=== PATIENT | male | born 1945 | race Caucasian/White ===

== ENCOUNTER 2016-06-24 20:07 | Observation (INO) | payer BC, MEDICARE, OTHER ==
[~2016-06-24] VITALS: Ht 175.3 cm; Wt 64.9 kg
[~2016-06-24 20:07] MED LIST: AMLOPIDINE; ATIVAN 0.50.5 MG/TAB PO; BUPROPRION; CARAFATE 1GM1 G PO; CELEXA; CELEXA40 MG PO; CENTRUM SILVER1 TAB PO; EFFEXOR-XR150 MG PO; EPA1000 MG PO; LAMICTAL150 MG PO; LISINOPRIL/HCTZ1 TA2 PO; MECLIZINE25 M1 PO; NORVASC 10MG10 MG PO; NORVASC10 MG PO; PERCOCET 325 MG1 TA2 PO; PRAVACHOL 40MG40 MG PO; PRILOSEC 20MG20 MG PO; SEROQUEL 1100 MG/TAB PO; SEROQUEL 2525 MG/TAB PO; SERTRALINE; UNICOMPLEX1 CAP PO; VITAMIN B-1000 MCG/T PO; ZOCOR40 MG PO; ZOFRAN4 M1 PO; ZOLOFT 50MG50 MG PO; [UNRECOGNIZED DRUG - MIXTURE] PO; [UNRECOGNIZED DRUG - OTHER]
[2016-06-24 20:36] LABS: BASO % 0.4 % (0.0-2.0); EOS # 0.3 (0.0-0.7); EOS % 2.8 % (0-4.0); GRAN # 5.7 (1.4-6.5); GRAN % 56.1 % (42.2-75.2); LYMPH % 29.5 % (20.0-51.0); MEAN CELL VOLUME 94 fl (80.0-100.0); MEAN CORPUSCULAR HGB CONC 33 g/dl (33.0-37.0); MEAN PLATELET VOLUME 11.2 fl (7.4-10.4); MONO # 1.1 (0.1-0.6); PLATELET COUNT 270 K/mm3 (130-400); RED BLOOD COUNT 3.56 M/mm3 (4.20-5.60); REDCELL DISTRIBUTION WIDTH-CV 13.1 % (11.5-14.5); WHITE BLOOD COUNT 10.2 K/mm3 (4.8-10.8)
[2016-06-24 20:37] LABS: HEMATOCRIT 33.5 % (42.0-52.0); HEMOGLOBIN 11.1 g/dl (13.5-18.0); MEAN CORPUSCULAR HEMOGLOBIN 31 pg (27.0-31.0)
[2016-06-24] MEDS ORDERED: ATARAX 25MG25 MG/TAB PO (20:43)
[2016-06-24] MEDS ORDERED: ASPIRIN 81M81 MG/TA2 PO (20:44)
[2016-06-24] MEDS ORDERED: FLOMAX 0.40.4 MG/CAP PO (20:44)
[2016-06-24] MEDS ORDERED: NEURONTIN300 MG/CAP PO (20:44)
[2016-06-24] MEDS ORDERED: ZANAFLEX2 MG PO (20:45)
[2016-06-24] MEDS ORDERED: NORCO 325 MG-51 TAB PO (20:45)
[2016-06-24 20:47] LABS: ADJUSTED CALCIUM 9.3 mg/dL (8.4-10.2); ALANINE AMINOTRANSFERASE 42 U/L (21-72); ALBUMIN 4.3 gm/dL (3.5-5.0); ALKALINE PHOSPHATASE 78 U/L (50-136); ANION GAP 9 mmol/L (7-16); BILIRUBIN,TOTAL 0.8 mg/dL (0.0-1.0); BLOOD UREA NITROGEN 17 mg/dL (9-20); CALCIUM 9.5 mg/dL (8.4-10.2); CARBON DIOXIDE 33 mmol/L (22-30); CHLORIDE 95 mmol/L (98-107); CREATININE, serum 0.74 mg/dL (0.66-1.25); GLUCOSE 98 mg/dL (74-106); POTASSIUM 4.9 mmol/L (3.4-5.0); SODIUM 138 mmol/L (137-145); TOTAL PROTEIN 7.5 gm/dL (6.4-8.2)
[2016-06-24 20:48] LABS: PROTHROMBIN TIME 11.1 SECONDS (9.7-12.8)
[2016-06-24 20:58] LABS: B-TYPE NATRIURETIC PEPTIDE 991 pg/mL (0-125)
[2016-06-24 21:00] LABS: TROPONIN-I < 0.012 ng/mL (0.000-0.034)
[2016-06-25] VITALS (10 sets, daily range): BP systolic 100–165; BP diastolic 46–82; PULSE 70–115; TEMP 97.9–98.3
[2016-06-26 00:18] VITALS: BP 132/75; PULSE 83
[2016-06-26 04:58] VITALS: BP 124/71; PULSE 87; TEMP 97.9
[2016-06-26 10:11] VITALS: BP 139/75; PULSE 100; TEMP 97.5
[2016-06-26] MEDS ORDERED: PREDNISONE20 MG PO (12:01)
[2016-06-26] MEDS ORDERED: 00186-0370-20 IH (12:02)
[2016-06-26] MEDS ORDERED: INCRUSE EL62.5 MCG/A IH (12:02)
[2016-06-26] MEDS ORDERED: ZITHROMAX TRI-500 MG PO (12:03)
[2016-10-10] MEDS ORDERED: PREDNISONE20 MG PO (11:05)
[2016-10-14] MEDS ORDERED: PRINZIDE 12.5 M1 TA1 PO (06:25)
[2016-10-14] MEDS ORDERED: SPIRIVA RE2.5 MCG/Ac IH (06:26)
[2016-10-14] MEDS ORDERED: 00186-0370-20 IH (06:26)
[2016-10-14] MEDS ORDERED: VITAMIN D1000 IU PO (06:28)
== END 2016-06-26 14:30 | disposition home or self-care (01) ==
LOC: COL.ER 20:07 → JCC 22:17
PROVIDERS: Emergency Medicine
DX: J44.1 Chronic obstructive pulmonary disease with (acute) exacerbation (principal); F17.210 Nicotine dependence, cigarettes, uncomplicated; J96.01 Acute respiratory failure with hypoxia; I10 Essential (primary) hypertension; D64.9 Anemia, unspecified; Z96.612 Presence of left artificial shoulder joint
CPT/HCPCS: 99222-AI; G0378; J0696; J2060; J2270; J7030; J7512; Q9967

== ENCOUNTER 2016-10-01 11:24 | Inpatient (IN) | payer OTHER ==
[2016-10-01] VITALS (556 sets, daily range): BP systolic 79–122; BP diastolic 50–64; PULSE 82–100; TEMP 98.1–98.7; O2SAT 77–100
[~2016-10-01] VITALS: Ht 175.3 cm; Wt 64.7 kg
[~2016-10-01 11:24] MED LIST changes: +00186-0370-20 IH; +ASPIRIN 81M81 MG/TA2 PO; +ATARAX 25MG25 MG/TAB PO; +FLOMAX 0.40.4 MG/CAP PO; +INCRUSE EL62.5 MCG/A IH; +NEURONTIN300 MG/CAP PO; +NORCO 325 MG-51 TAB PO; +PREDNISONE20 MG PO; +ZANAFLEX2 MG PO; +ZITHROMAX TRI-500 MG PO
[2016-10-01 11:53] LABS: MEAN CELL VOLUME 92 fl (80.0-100.0); MEAN CORPUSCULAR HGB CONC 35 g/dl (33.0-37.0); MEAN PLATELET VOLUME 10.7 fl (7.4-10.4); PLATELET COUNT 377 K/mm3 (130-400); RED BLOOD COUNT 3.42 M/mm3 (4.20-5.60); REDCELL DISTRIBUTION WIDTH-CV 12.6 % (11.5-14.5); WHITE BLOOD COUNT 13.4 K/mm3 (4.8-10.8)
[2016-10-01 11:59] LABS: ADJUSTED CALCIUM 9.1 mg/dL (8.4-10.2); ALBUMIN 4.3 gm/dL (3.5-5.0); BILIRUBIN,TOTAL 0.9 mg/dL (0.0-1.0); CALCIUM 9.3 mg/dL (8.4-10.2); CREATININE, serum 1.98 mg/dL (0.66-1.25); POTASSIUM 4.8 mmol/L (3.4-5.0); TOTAL PROTEIN 7.8 gm/dL (6.4-8.2)
[2016-10-01 12:17] LABS: ADD PATHOLOGY DIFF REVIEW NO; HEMATOCRIT 31.6 % (42.0-52.0); HEMOGLOBIN 10.9 g/dl (13.5-18.0); MEAN CORPUSCULAR HEMOGLOBIN 32 pg (27.0-31.0)
[2016-10-01 12:21] LABS: BAND 45 % (0-10); EOSINOPHIL 1 % (0-4); NEUTROPHILS 26 % (42.0-75.2); PLATELET ESTIMATE INCREASED (NORMAL); TOTAL CELLS COUNTED 100
[2016-10-01] MEDS ORDERED: EZFE 200200 MG PO (13:35)
[2016-10-01] MEDS ORDERED: PROVENTIL0.09 MG/A1 IH (13:36)
[2016-10-01] MEDS ORDERED: 00186-0370-20 IH (13:38)
[2016-10-01] MEDS ORDERED: PRINZIDE 25 MG-1 TAB PO (14:50)
[2016-10-01] MEDS ORDERED: EPA FISH OIL1 SGL PO (14:54)
[2016-10-02] VITALS (763 sets, daily range): BP systolic 92–133; BP diastolic 50–82; PULSE 72–101; TEMP 97.4–98.7; O2SAT 81–100
[2016-10-02 05:48] LABS: MEAN CELL VOLUME 93 fl (80.0-100.0); MEAN CORPUSCULAR HGB CONC 34 g/dl (33.0-37.0); MEAN PLATELET VOLUME 10.5 fl (7.4-10.4); PLATELET COUNT 344 K/mm3 (130-400); RED BLOOD COUNT 2.92 M/mm3 (4.20-5.60); REDCELL DISTRIBUTION WIDTH-CV 12.6 % (11.5-14.5); WHITE BLOOD COUNT 14.8 K/mm3 (4.8-10.8)
[2016-10-02 05:52] LABS: HEMATOCRIT 27.2 % (42.0-52.0); HEMOGLOBIN 9.2 g/dl (13.5-18.0); MEAN CORPUSCULAR HEMOGLOBIN 32 pg (27.0-31.0)
[2016-10-02 05:53] LABS: ADD PATHOLOGY DIFF REVIEW NO
[2016-10-02 06:00] LABS: CALCIUM 8.3 mg/dL (8.4-10.2); CREATININE, serum 1.6 mg/dL (0.66-1.25); POTASSIUM 4.4 mmol/L (3.4-5.0)
[2016-10-02 06:08] LABS: BAND 48 % (0-10); METAMYELOCYTE 2 % (0-0); NEUTROPHILS 27 % (42.0-75.2); PLATELET ESTIMATE NORMAL (NORMAL); TOTAL CELLS COUNTED 100
[2016-10-03] VITALS (8 sets, daily range): BP systolic 95–193; BP diastolic 64–132; PULSE 76–93; TEMP 98.1–98.8
[2016-10-04 03:46] VITALS: BP 152/90; PULSE 86; TEMP 97.7
[2016-10-04 08:16] LABS: MEAN CELL VOLUME 96 fl (80.0-100.0); MEAN CORPUSCULAR HGB CONC 32 g/dl (33.0-37.0); MEAN PLATELET VOLUME 10.8 fl (7.4-10.4); RED BLOOD COUNT 3.42 M/mm3 (4.20-5.60); WHITE BLOOD COUNT 13.1 K/mm3 (4.8-10.8)
[2016-10-04 08:25] LABS: ADD PATHOLOGY DIFF REVIEW NO; HEMATOCRIT 32.9 % (42.0-52.0); HEMOGLOBIN 10.6 g/dl (13.5-18.0); MEAN CORPUSCULAR HEMOGLOBIN 31 pg (27.0-31.0); PLATELET COUNT 455 K/mm3 (130-400)
[2016-10-04 08:46] LABS: CALCIUM 9.1 mg/dL (8.4-10.2); CREATININE, serum 0.72 mg/dL (0.66-1.25); POTASSIUM 5.2 mmol/L (3.4-5.0)
[2016-10-04 09:19] VITALS: BP 135/69; PULSE 102; TEMP 97.4
[2016-10-04] MEDS ORDERED: OMNICEF 300MG300 MG PO (10:10)
[2016-10-04] MEDS ORDERED: PREDNISONE20 MG PO (10:16)
[2016-10-04 10:38] LABS: BAND 2 % (0-10); NEUTROPHILS 81 % (42.0-75.2); PLATELET ESTIMATE INCREASED (NORMAL); TOTAL CELLS COUNTED 100
[2016-10-04 13:07] VITALS: BP 145/78; PULSE 90; TEMP 98.5
[2016-10-10] MEDS ORDERED: PREDNISONE20 MG PO (11:05)
[2016-10-14] MEDS ORDERED: PRINZIDE 12.5 M1 TA1 PO (06:25)
[2016-10-14] MEDS ORDERED: 00186-0370-20 IH (06:26)
[2016-10-14] MEDS ORDERED: SPIRIVA RE2.5 MCG/Ac IH (06:26)
[2016-10-14] MEDS ORDERED: VITAMIN D1000 IU PO (06:28)
== END 2016-10-04 14:51 | disposition home or self-care (01) | DRG 191 ==
LOC: COL.ER 11:24 → MEDICAL 12:43 → ICU 14:03 → MEDICAL 14:42
PROVIDERS: Emergency Medicine; Family Medicine; Internal Medicine
DX: J44.0 Chronic obstructive pulmonary disease with (acute) lower respiratory infection (principal); N17.9 Acute kidney failure, unspecified; J44.1 Chronic obstructive pulmonary disease with (acute) exacerbation; J20.9 Acute bronchitis, unspecified; I10 Essential (primary) hypertension; E87.5 Hyperkalemia; Z87.891 Personal history of nicotine dependence; E86.0 Dehydration
CPT/HCPCS: 99223-AI; 99233-AI; 99239; J0456; J0696; J1650; J7030; J7512

== ENCOUNTER 2016-10-11 08:00 | Outpatient (RCR) | payer OTHER ==
[~2016-10-11 08:00] MED LIST changes: +EPA FISH OIL1 SGL PO; +EZFE 200200 MG PO; +OMNICEF 300MG300 MG PO; +PRINZIDE 25 MG-1 TAB PO; +PROVENTIL0.09 MG/A1 IH
[2016-10-14] MEDS ORDERED: PRINZIDE 12.5 M1 TA1 PO (06:25)
[2016-10-14] MEDS ORDERED: SPIRIVA RE2.5 MCG/Ac IH (06:26)
[2016-10-14] MEDS ORDERED: 00186-0370-20 IH (06:26)
[2016-10-14] MEDS ORDERED: VITAMIN D1000 IU PO (06:28)
== END 2016-10-12 | disposition home or self-care (01) ==
LOC: MKS.ESL.PT
DX: M75.112 Incomplete rotator cuff tear or rupture of left shoulder, not specified as traumatic (principal)
CPT/HCPCS: G8978-GP; G8979-GP

== ENCOUNTER → 2016-10-14 | Outpatient (CLI) | payer OTHER ==
[~2016-10-14] MED LIST changes: +BRILINTA90 MG PO; +LIPITOR 40MG TA40 MG PO; +MOBIC 7.5MG7.5 MG PO; +NITROSTAT0.4 MG/TAB SL; +PRINZIDE 12.5 M1 TA1 PO; +SPIRIVA RE2.5 MCG/Ac IH; +VITAMIN D1000 IU PO
[2016-10-14 06:29] VITALS: BP 114/70; PULSE 75
[2016-10-14 07:06] VITALS: BP 108/55; PULSE 95
[2016-10-14 07:07] VITALS: BP 100/68; PULSE 94
[2016-10-14 07:08] VITALS: BP 114/58; PULSE 86
== END ==
LOC: COL.CARD 06:07
DX: R06.02 Shortness of breath (principal); J44.9 Chronic obstructive pulmonary disease, unspecified
CPT/HCPCS: A9502; J2785

== ENCOUNTER 2016-11-15 09:05 | Observation (INO) | payer BC ==
[2016-11-15] VITALS (142 sets, daily range): BP systolic 105–139; BP diastolic 68–796; PULSE 62–94; TEMP 97.8–97.9; O2SAT 90–100
[~2016-11-15] VITALS: Ht 175.4 cm; Wt 64.3 kg
[~2016-11-15 09:05] MED LIST changes: -BRILINTA90 MG PO; -LIPITOR 40MG TA40 MG PO; -MOBIC 7.5MG7.5 MG PO; -NITROSTAT0.4 MG/TAB SL
[2016-11-15] MEDS ORDERED: MOBIC 7.5MG7.5 MG PO (09:34)
[2016-11-15 10:08] LABS: MEAN CELL VOLUME 94 fl (80.0-100.0); MEAN CORPUSCULAR HGB CONC 33 g/dl (33.0-37.0); MEAN PLATELET VOLUME 10.3 fl (7.4-10.4); REDCELL DISTRIBUTION WIDTH-CV 13.6 % (11.5-14.5); WHITE BLOOD COUNT 7.3 K/mm3 (4.8-10.8)
[2016-11-15 10:17] LABS: CALCIUM 9.6 mg/dL (8.4-10.2); CREATININE, serum 0.93 mg/dL (0.66-1.25); POTASSIUM 4.9 mmol/L (3.4-5.0)
[2016-11-15 10:18] LABS: PROTHROMBIN TIME 11.5 SECONDS (9.7-12.8)
[2016-11-15 10:40] LABS: HEMATOCRIT 33.8 % (42.0-52.0); HEMOGLOBIN 11.3 g/dl (13.5-18.0); MEAN CORPUSCULAR HEMOGLOBIN 31 pg (27.0-31.0)
[2016-11-15 10:41] LABS: PLATELET COUNT 369 K/mm3 (130-400)
[2016-11-16] VITALS (489 sets, daily range): BP systolic 86–155; BP diastolic 49–86; PULSE 60–76; TEMP 98.2–98.4; O2SAT 81–100
[2016-11-16 06:42] LABS: MEAN CELL VOLUME 94 fl (80.0-100.0); MEAN CORPUSCULAR HGB CONC 33 g/dl (33.0-37.0); MEAN PLATELET VOLUME 10.7 fl (7.4-10.4); PLATELET COUNT 352 K/mm3 (130-400); RED BLOOD COUNT 3.32 M/mm3 (4.20-5.60); REDCELL DISTRIBUTION WIDTH-CV 13.9 % (11.5-14.5); WHITE BLOOD COUNT 8.5 K/mm3 (4.8-10.8)
[2016-11-16 06:47] LABS: CALCIUM 8.6 mg/dL (8.4-10.2); CREATININE, serum 0.79 mg/dL (0.66-1.25); POTASSIUM 4.3 mmol/L (3.4-5.0)
[2016-11-16 07:36] LABS: HEMATOCRIT 31.1 % (42.0-52.0); HEMOGLOBIN 10.3 g/dl (13.5-18.0); MEAN CORPUSCULAR HEMOGLOBIN 31 pg (27.0-31.0)
[2016-11-16] MEDS ORDERED: BRILINTA90 MG PO (10:09)
[2016-11-16] MEDS ORDERED: LIPITOR 40MG TA40 MG PO (10:16)
[2016-11-16] MEDS ORDERED: NITROSTAT0.4 MG/TAB SL (10:17)
== END 2016-11-16 11:20 | disposition home or self-care (01) ==
LOC: COL.CAR 09:05 → IMCU 18:20 → COL.CAR 18:20 → ICU 18:20 → IMCU 19:00 → ICU 11-16 11:20
PROVIDERS: Internal Medicine Cardiovascular Disease
DX: I25.110 Atherosclerotic heart disease of native coronary artery with unstable angina pectoris (principal); I34.0 Nonrheumatic mitral (valve) insufficiency; I35.8 Other nonrheumatic aortic valve disorders; I34.8 Other nonrheumatic mitral valve disorders; I07.1 Rheumatic tricuspid insufficiency; F41.9 Anxiety disorder, unspecified; F32.9 Major depressive disorder, single episode, unspecified; I10 Essential (primary) hypertension; Z87.891 Personal history of nicotine dependence; J44.1 Chronic obstructive pulmonary disease with (acute) exacerbation; Z90.3 Acquired absence of stomach [part of]; I73.9 Peripheral vascular disease, unspecified; D64.9 Anemia, unspecified; E03.9 Hypothyroidism, unspecified; I48.91 Unspecified atrial fibrillation
CPT/HCPCS: C1725; C1760; C1769; C1874; C1887; C9600; J0583; J2250; J3010; Q9967

== ENCOUNTER 2016-12-07 08:15 | Outpatient (RCR) | payer OTHER ==
[~2016-12-07 08:15] MED LIST changes: +BRILINTA90 MG PO; +LIPITOR 40MG TA40 MG PO; +MOBIC 7.5MG7.5 MG PO; +NITROSTAT0.4 MG/TAB SL
== END 2017-01-12 | disposition home or self-care (01) ==
LOC: MKS.ESL.PT
DX: M75.112 Incomplete rotator cuff tear or rupture of left shoulder, not specified as traumatic (principal); Z91.81 History of falling

== ENCOUNTER → 2016-12-21 | Outpatient (CLI) | payer BC | LOC: COL.RAD 12:42 | DX: M79.605 Pain in left leg (principal); M79.604 Pain in right leg; M48.06 Spinal stenosis, lumbar region; M43.16 Spondylolisthesis, lumbar region; I70.0 Atherosclerosis of aorta ==

== ENCOUNTER 2017-01-13 14:28 | Outpatient (RCR) | payer BC | END 2017-01-16 08:16 | disposition home or self-care (01) | LOC: COL.CR 14:28 | DX: Z48.812 Encounter for surgical aftercare following surgery on the circulatory system (principal); Z95.5 Presence of coronary angioplasty implant and graft ==

== ENCOUNTER 2017-01-19 08:59 | Outpatient (RCR) | payer BC | END 2017-04-19 | LOC: MKS.ESL.PT | DX: M75.112 Incomplete rotator cuff tear or rupture of left shoulder, not specified as traumatic (principal) | CPT/HCPCS: G8979-GP; G8980-GP ==

== ENCOUNTER 2018-01-23 12:48 | Outpatient (CLI) | payer MEDICARE, BC ==
[~2018-01-23] VITALS: Ht 175.4 cm; Wt 63.1 kg
[~2018-01-23 12:48] MED LIST changes: +CENTRUM SILVER1 TA2 PO; +IRON TABLETS325 MG PO; +LAMICTAL 100MG100 MG PO; +LAMICTAL200 MG PO; +MASON NATURAL1200 MG PO; +NEURONTIN600 MG/TAB PO; +PLAVIX 75MG TAB75 MG PO; +THEO-DUR 3300 MG/TAB PO; +VITAMIN D 1001000 IU PO; -VITAMIN D1000 IU PO
[2018-01-23] MEDS ORDERED: THEO-DUR 3300 MG/TAB PO (13:08)
[2018-01-23 13:24] VITALS: BP 138/86; PULSE 91
[2018-01-23 14:15] VITALS: BP 149/87; PULSE 87
== END 2018-01-23 16:19 | disposition home or self-care (01) ==
LOC: COL.RAD 12:48
DX: M48.061 Spinal stenosis, lumbar region without neurogenic claudication (principal); M51.36 Other intervertebral disc degeneration, lumbar region; M51.26 Other intervertebral disc displacement, lumbar region
CPT/HCPCS: Q9965

== ENCOUNTER → 2018-04-30 | Outpatient (CLI) | payer MEDICARE, BC | LOC: COL.RAD 08:07 | DX: Z13.6 Encounter for screening for cardiovascular disorders (principal); F17.200 Nicotine dependence, unspecified, uncomplicated ==

== ENCOUNTER 2018-06-08 10:15 | Outpatient (RCR) | payer MEDICARE, BC | END 2018-06-11 08:18 | disposition home or self-care (01) | LOC: MKS.ESL.PT 10:15 | DX: Z47.89 Encounter for other orthopedic aftercare (principal); Z79.82 Long term (current) use of aspirin; Z79.52 Long term (current) use of systemic steroids; Z79.899 Other long term (current) drug therapy | CPT/HCPCS: G8978-GP; G8979-GP ==

== ENCOUNTER 2018-11-23 09:45 | Outpatient (RCR) | payer MEDICARE, BC | END 2018-11-25 | LOC: MKS.ESL.PT | DX: Z47.89 Encounter for other orthopedic aftercare (principal); M48.061 Spinal stenosis, lumbar region without neurogenic claudication; Z98.1 Arthrodesis status ==

== ENCOUNTER 2019-01-30 08:45 | Outpatient (RCR) | payer MEDICARE, BC | END 2019-01-31 08:31 | disposition home or self-care (01) | LOC: MKS.ESL.PT 08:45 | DX: M48.061 Spinal stenosis, lumbar region without neurogenic claudication (principal) ==

== ENCOUNTER → 2019-02-18 | Outpatient (CLI) | payer MEDICARE, BC | LOC: COL.RAD 01-14 13:00 | DX: M48.061 Spinal stenosis, lumbar region without neurogenic claudication (principal); M43.16 Spondylolisthesis, lumbar region; Z98.1 Arthrodesis status ==

== ENCOUNTER 2019-02-22 09:00 | Outpatient (RCR) | payer OTHER | END 2019-02-25 09:03 | disposition home or self-care (01) | LOC: MKS.ESL.PT 09:00 | DX: M54.9 Dorsalgia, unspecified (principal); Z98.1 Arthrodesis status ==

== ENCOUNTER 2019-06-17 08:45 | Outpatient (RCR) | payer MEDICARE, BC | END 2019-06-19 | disposition home or self-care (01) | LOC: MKS.ESL.PT | DX: R26.81 Unsteadiness on feet (principal) ==

== ENCOUNTER 2019-08-08 11:15 | Outpatient (RCR) | payer MEDICARE, BC | END 2019-10-17 | disposition home or self-care (01) | LOC: WSPT | DX: R26.89 Other abnormalities of gait and mobility (principal); Z91.81 History of falling | CPT/HCPCS: G0283-GP ==

== ENCOUNTER 2019-11-20 06:41 | Emergency (ER) | payer MEDICARE, BC ==
[~2019-11-20] VITALS: Ht 177.8 cm; Wt 68.2 kg
[2019-11-20 07:01] VITALS: TEMP 97.8
[2019-11-20] MEDS ORDERED: NORCO 325 MG-51 TAB PO (10:10)
[2019-11-20 11:00] VITALS: BP 186/80; PULSE 80
== END 2019-11-20 11:00 | disposition home or self-care (01) ==
LOC: COL.ER 06:41
DX: S46.911A Strain of unspecified muscle, fascia and tendon at shoulder and upper arm level, right arm, initial encounter (principal); J44.9 Chronic obstructive pulmonary disease, unspecified; I25.10 Atherosclerotic heart disease of native coronary artery without angina pectoris; I10 Essential (primary) hypertension; Z79.02 Long term (current) use of antithrombotics/antiplatelets; Z79.82 Long term (current) use of aspirin; X50.1XXA Overexertion from prolonged static or awkward postures, initial encounter
CPT/HCPCS: J1170; J2270; J2550

== ENCOUNTER 2019-12-09 08:45 | Outpatient (RCR) | payer MEDICARE, BC ==
[2019-12-24] MEDS ORDERED: NORVASC 5MG5 MG/TAB PO (09:35)
[2019-12-24] MEDS ORDERED: FLOMAX 0.40.4 MG/CAP PO (09:36)
[2019-12-24] MEDS ORDERED: EFFEXOR-XR150 MG PO (09:37)
[2019-12-24] MEDS ORDERED: ASPIRIN 81M81 MG/TA2 PO (09:41)
[2019-12-24] MEDS ORDERED: LAMICTAL200 MG PO (09:41)
[2019-12-24] MEDS ORDERED: LIPITOR 40MG TA40 MG PO (09:42)
[2019-12-24] MEDS ORDERED: THEO-24 30300 MG/CAP PO (09:46)
[2019-12-24] MEDS ORDERED: PLAVIX 75MG TAB75 MG PO (09:46)
[2019-12-24] MEDS ORDERED: PROTONIX 40MG T40 MG PO (09:47)
[2019-12-24] MEDS ORDERED: SPIRIVA RE2.5 MCG/Ac IH (09:48)
[2019-12-24] MEDS ORDERED: REMERON30 MG PO (09:49)
[2019-12-24] MEDS ORDERED: 00186-0370-20 IH (09:49)
[2019-12-24] MEDS ORDERED: NITROSTAT0.4 MG/TAB SL (09:50)
[2019-12-24] MEDS ORDERED: VITAMIN B12 781 TAB PO (09:51)
[2019-12-24] MEDS ORDERED: OMEGA-3 1000 MG1 CAP PO (09:51)
[2019-12-24] MEDS ORDERED: CENTRUM SILVER1 TAB PO (09:51)
[2019-12-24] MEDS ORDERED: IRON TABLETS325 MG PO (09:55)
[2019-12-24] MEDS ORDERED: VITAMIN D250 MCG PO (09:56)
[2019-12-24] MEDS ORDERED: PROVENTIL0.09 MG/A1 IH (10:03)
[2020-01-05] MEDS ORDERED: LEVAQUIN 750MG750 M1 PO (11:41)
[2020-01-05] MEDS ORDERED: XANAX .25M0.25 MG/TA PO (11:42)
[2020-01-05] MEDS ORDERED: PREDNISONE 5MG5 MG PO (11:44)
== END 2020-01-27 | disposition home or self-care (01) ==
LOC: MKS.ESL.PT
DX: M54.16 Radiculopathy, lumbar region (principal)
CPT/HCPCS: G0283-GP

== ENCOUNTER 2019-12-24 08:25 | Day surgery (SDC) | payer MEDICARE, BC ==
[~2019-12-24] VITALS: Ht 177.8 cm; Wt 67.5 kg
[2019-12-24 09:20] VITALS: BP 129/79; PULSE 97; TEMP 98.7
[2019-12-24 09:27] LABS: PROTHROMBIN TIME 11.2 SECONDS (9.7-12.8)
[2019-12-24] MEDS ORDERED: NORVASC 5MG5 MG/TAB PO (09:35)
[2019-12-24] MEDS ORDERED: FLOMAX 0.40.4 MG/CAP PO (09:36)
[2019-12-24] MEDS ORDERED: EFFEXOR-XR150 MG PO (09:37)
[2019-12-24] MEDS ORDERED: ASPIRIN 81M81 MG/TA2 PO (09:41)
[2019-12-24] MEDS ORDERED: LAMICTAL200 MG PO (09:41)
[2019-12-24] MEDS ORDERED: LIPITOR 40MG TA40 MG PO (09:42)
[2019-12-24] MEDS ORDERED: THEO-24 30300 MG/CAP PO (09:46)
[2019-12-24] MEDS ORDERED: PLAVIX 75MG TAB75 MG PO (09:46)
[2019-12-24] MEDS ORDERED: PROTONIX 40MG T40 MG PO (09:47)
[2019-12-24] MEDS ORDERED: SPIRIVA RE2.5 MCG/Ac IH (09:48)
[2019-12-24] MEDS ORDERED: 00186-0370-20 IH (09:49)
[2019-12-24] MEDS ORDERED: REMERON30 MG PO (09:49)
[2019-12-24] MEDS ORDERED: NITROSTAT0.4 MG/TAB SL (09:50)
[2019-12-24] MEDS ORDERED: OMEGA-3 1000 MG1 CAP PO (09:51)
[2019-12-24] MEDS ORDERED: CENTRUM SILVER1 TAB PO (09:51)
[2019-12-24] MEDS ORDERED: VITAMIN B12 781 TAB PO (09:51)
[2019-12-24] MEDS ORDERED: IRON TABLETS325 MG PO (09:55)
[2019-12-24] MEDS ORDERED: VITAMIN D250 MCG PO (09:56)
[2019-12-24] MEDS ORDERED: PROVENTIL0.09 MG/A1 IH (10:03)
[2019-12-24 10:45] VITALS: BP 134/76; PULSE 88
--- NOTE | 2019-12-24 10:45 | NUR ---
TO RM 1 PER CART FROM ENDOSCOPY. COUGHING UP DIME SIZE BLOODY SPUTUM. 02 AT 5L WITH SATS AT85% AND AT TIMES 87%. PLACED ON 6L PER NC AND SATS CONTINUE AT 85-86%.
[2019-12-24 11:00] VITALS: BP 101/64; PULSE 81
--- NOTE | 2019-12-24 11:00 | NUR ---
NO CHANGES SATS 85% ON 6L PER NC
--- NOTE | 2019-12-24 11:10 | NUR ---
PLACED ON OXYMASK AT 8L AND SATS STILL 85%
[2019-12-24 11:15] VITALS: BP 115/80; PULSE 80
--- NOTE | 2019-12-24 11:15 | NUR ---
CONTINUES TO COUGH UP SMALL AMOUNTS OF BLOODY SPUTUM
--- NOTE | 2019-12-24 11:30 | NUR ---
DR MOSLEY CALLED CONCERNING 02 SAT 84-85% ON 8 L OXYMASK. ORDER TO GIVE ALBUTEROL TX AND TO KEEP 02 ON AT 5L PER NC. IF SATS STAY ABOVE 88% HE CAN BE DISCHARGED, BUT IF IT WON'T STAY ABOVE 88% CALL DR MOSLEY.
--- NOTE | 2019-12-24 11:45 | NUR ---
RECEIVED ALBUTEROL TX ORDERED
[2019-12-24 12:05] VITALS: BP 111/81; PULSE 90
--- NOTE | 2019-12-24 12:05 | NUR ---
CONTINUES TO BE ON 5L PER NC WITH O2 SAT AT 5L NC
--- NOTE | 2019-12-24 12:28 | NUR ---
UPDATED OF PATIENT CONDITION AND 02 SATS.
--- NOTE | 2019-12-24 12:29 | NUR ---
LOWERED HEAD OF BED PER PATIENT REQUEST AND HE SAID HE FELT BETTER.
[2019-12-24 12:30] VITALS: BP 126/71; PULSE 83; PULSE 91
--- NOTE | 2019-12-24 12:30 | NUR ---
PATIENT RESTING QUIETLY. SATS 91% ON 5L PER NC
--- NOTE | 2019-12-24 12:34 | NUR ---
PATIENT STATS 91-92 ON THE 5L. PATIENT SHOWS NO SHORTNESS OF BREATH. PATIENT QUIETLY WATCHING TV.
--- NOTE | 2019-12-24 12:50 | NUR ---
RECEIVED DISCHARGE INSTRUCTIONS AND VERBALIZED UNDERSTANDING. DISCONTINUED IV AND INT- CATHETER INTACT. 02 SAT 91-92%.
--- NOTE | 2019-12-24 13:15 | NUR ---
DISCHARGED PER WC BY NURSING STAFF TO PRIVATE CAR IN CARE OF DENI- .
== END 2019-12-24 13:30 | disposition home or self-care (01) ==
LOC: SDCO 08:25
PROVIDERS: Internal Medicine Pulmonary Disease
DX: C34.91 Malignant neoplasm of unspecified part of right bronchus or lung (principal); C34.92 Malignant neoplasm of unspecified part of left bronchus or lung; R04.2 Hemoptysis; J44.9 Chronic obstructive pulmonary disease, unspecified; J18.1 Lobar pneumonia, unspecified organism; I10 Essential (primary) hypertension; I25.10 Atherosclerotic heart disease of native coronary artery without angina pectoris; G47.34 Idiopathic sleep related nonobstructive alveolar hypoventilation; R93.89 Abnormal findings on diagnostic imaging of other specified body structures; I48.91 Unspecified atrial fibrillation; G89.29 Other chronic pain; M19.90 Unspecified osteoarthritis, unspecified site; Z79.82 Long term (current) use of aspirin; Z79.02 Long term (current) use of antithrombotics/antiplatelets; Z87.891 Personal history of nicotine dependence; Z95.1 Presence of aortocoronary bypass graft; Z20.828 Contact with and (suspected) exposure to other viral communicable diseases
CPT/HCPCS: J2704; J7120

== ENCOUNTER 2019-12-31 10:26 | Inpatient (IN) | payer MEDICARE, BC ==
[~2019-12-31] VITALS: Ht 172.7 cm; Wt 69.1 kg
[2019-12-31] VITALS (103 sets, daily range): BP systolic 140–157; BP diastolic 54–135; PULSE 75–80; TEMP 98.4; O2SAT 80–100
[~2019-12-31 10:26] MED LIST changes: +NORVASC 5MG5 MG/TAB PO; +OMEGA-3 1000 MG1 CAP PO; +PROTONIX 40MG T40 MG PO; +REMERON30 MG PO; +THEO-24 30300 MG/CAP PO; +VITAMIN B12 781 TAB PO; +VITAMIN D250 MCG PO
[2019-12-31 10:59] LABS: ALBUMIN 4.6 gm/dL (3.5-5.0); BASO % 0.4 % (0.0-2.0); BILIRUBIN,TOTAL 0.4 mg/dL (0.0-1.0); CALCIUM 9.8 mg/dL (8.4-10.2); CREATININE, serum 0.98 (0.66-1.25); EOS # 0.2 (0.0-0.7); EOS % 1.8 % (0-4.0); GRAN # 6.5 (1.4-6.5); HEMATOCRIT 42.6 % (42.0-52.0); HEMOGLOBIN 13.6 g/dl (13.5-18.0); LYMPH # 1.6 (1.2-3.4); LYMPH % 17.5 % (20.0-51.0); MEAN CELL VOLUME 100 fl (80.0-100.0); MEAN CORPUSCULAR HEMOGLOBIN 32 pg (27.0-31.0); MEAN CORPUSCULAR HGB CONC 32 g/dl (33.0-37.0); MEAN PLATELET VOLUME 10.6 fl (7.4-10.4); MONO # 0.9 (0.1-0.6); PLATELET COUNT 334 K/mm3 (130-400); POTASSIUM 4.5 mmol/L (3.4-5.0); RED BLOOD COUNT 4.28 M/mm3 (4.20-5.60); REDCELL DISTRIBUTION WIDTH-CV 12.6 % (11.5-14.5); TOTAL PROTEIN 7.9 gm/dL (6.4-8.2)
[2019-12-31 11:28] LABS: ARTERIAL BLD GAS O2 SATURATION 92.9 % (92-100); ARTERIAL BLD GAS TCO2 CT 24.6; ARTERIAL BLOOD GAS BASE EXCESS -0.9 (-2-2); ARTERIAL BLOOD GAS HCO3 23.4 meq/L (22-26); ARTERIAL BLOOD GAS PCO2 37.6 mmHg (35-45); ARTERIAL BLOOD GAS PO2 68.4 mmHg (80-100); ARTERIAL BLOOD GAS pH 7.41 (7.35-7.45)
--- NOTE | 2019-12-31 18:04 | NUR ---
PT SWITCHED FROM A NRB MASK TO AN AIRVO HHFNC 40L 65% AND HEATED TO 34 DEGREES CELCIUS. PT IS TOLERATING IT WELL SPO2 97% HR 80 AND RR 22. PT WILL ALSO BE RECEIVING SVN TREATMENTS.
--- NOTE | 2019-12-31 20:00 | NUR ---
PATIENT VERY TALKATIVE AND COMFORTABLE IN HIS SURROUNDINGS SPOUSE PRESENT, DENIES DISCOMFORT AT THIS TIME
[2020-01-01] VITALS (563 sets, daily range): BP systolic 116–167; BP diastolic 67–90; PULSE 87–104; TEMP 98–98.5; O2SAT 76–100
[2020-01-01 05:24] LABS: ARTERIAL BLD GAS O2 SATURATION 92.4 % (92-100); ARTERIAL BLD GAS TCO2 CT 27.5; ARTERIAL BLOOD GAS BASE EXCESS 1.2 (-2-2); ARTERIAL BLOOD GAS HCO3 26.2 meq/L (22-26); ARTERIAL BLOOD GAS PCO2 43.3 mmHg (35-45)
[2020-01-01 05:37] LABS: HEMATOCRIT 37.4 % (42.0-52.0); HEMOGLOBIN 12.1 g/dl (13.5-18.0); MEAN CELL VOLUME 100 fl (80.0-100.0); MEAN CORPUSCULAR HEMOGLOBIN 32 pg (27.0-31.0); MEAN CORPUSCULAR HGB CONC 32 g/dl (33.0-37.0); MEAN PLATELET VOLUME 10.6 fl (7.4-10.4); PLATELET COUNT 318 K/mm3 (130-400); RED BLOOD COUNT 3.75 M/mm3 (4.20-5.60); REDCELL DISTRIBUTION WIDTH-CV 12.5 % (11.5-14.5)
[2020-01-01 05:50] LABS: ALBUMIN 4.2 gm/dL (3.5-5.0); BILIRUBIN,TOTAL 0.3 mg/dL (0.0-1.0); CALCIUM 9.6 mg/dL (8.4-10.2); CREATININE, serum 0.94 (0.66-1.25); PHOSPHOROUS 4.3 mg/dL (2.5-4.5); POTASSIUM 4.6 mmol/L (3.4-5.0); TOTAL PROTEIN 7.3 gm/dL (6.4-8.2)
[2020-01-01 05:54] LABS: BAND 5 % (0-10); HYPOCHROMIA 1+; LYMPHOCYTE 5 % (20.0-51.0); NEUTROPHILS 89 % (42.0-75.2); PLATELET ESTIMATE NORMAL (NORMAL)
--- NOTE | 2020-01-01 10:43 | NUR ---
Initial visit; Patient thanked Brush Operator for looking in on him, offering spiritual care, especially prayer.
--- NOTE | 2020-01-01 10:51 | NUR ---
SW met with the patient to discuss discharge plan. The patient lives in [place] with his , Yolanda King" (ph#[phone]). He reports independence with ADLs and has a cane, two walkers, a wheelchair, and is on nocturnal oxygen from [facility]. He states that he is normally on 2 liters. The patient's PCP is Dr. Roque Tolbert and he receives his medications at [facility]. He reports no difficulties obtaining his meds. The patient does not have advanced directives in EMR, but he reports that he does have them completed and that his is his DPOA-HC. The patient plans to return home with his upon discharge. The patient is currently on high flow cannula. SW to continue to follow.
--- NOTE | 2020-01-01 17:52 | NUR ---
Patient moved to [id number] at this time, alert/oriented, VSS, denies needs, I am assuming patient care at this point
--- NOTE | 2020-01-01 19:00 | NUR ---
RECEIVED REPORT FROM JOSH NINO. PT LYING IN BED ON AIRVO AT 40%, 40l. AT BEDSIDE TALKING TO PT. VSS. CALL LIGHT WITHIN REACH.
[2020-01-02] VITALS (88 sets, daily range): BP systolic 110–150; BP diastolic 68–92; PULSE 94–108; TEMP 97.2–98.6; O2SAT 83–96
[2020-01-02 05:50] LABS: BASO % 0.1 % (0.0-2.0); GRAN # 10.9 (1.4-6.5); GRAN % 84.2 % (42.2-75.2); LYMPH # 0.9 (1.2-3.4); MEAN CELL VOLUME 99 fl (80.0-100.0); MEAN CORPUSCULAR HEMOGLOBIN 33 pg (27.0-31.0); MEAN CORPUSCULAR HGB CONC 33 g/dl (33.0-37.0); MEAN PLATELET VOLUME 10.7 fl (7.4-10.4); MONO # 1.1 (0.1-0.6); MONO % 8.2 % (1.7-9.3); PLATELET COUNT 333 K/mm3 (130-400); RED BLOOD COUNT 3.69 M/mm3 (4.20-5.60); REDCELL DISTRIBUTION WIDTH-CV 12.7 % (11.5-14.5)
[2020-01-02 05:51] LABS: HEMATOCRIT 36.5 % (42.0-52.0)
[2020-01-02 05:58] LABS: ALBUMIN 4.4 gm/dL (3.5-5.0); BILIRUBIN,TOTAL 0.3 mg/dL (0.0-1.0); CALCIUM 10.1 mg/dL (8.4-10.2); CREATININE, serum 0.9 (0.66-1.25); MAGNESIUM 2.3 mg/dL (1.6-2.3); PHOSPHOROUS 4.7 mg/dL (2.5-4.5); POTASSIUM 4.5 mmol/L (3.4-5.0); TOTAL PROTEIN 7.3 gm/dL (6.4-8.2)
[2020-01-02 07:35] LABS: ARTERIAL BLD GAS O2 SATURATION 91.3 % (92-100); ARTERIAL BLD GAS TCO2 CT 26.3; ARTERIAL BLOOD GAS BASE EXCESS 1.8 (-2-2); ARTERIAL BLOOD GAS HCO3 25.2 meq/L (22-26); ARTERIAL BLOOD GAS PCO2 35.5 mmHg (35-45); ARTERIAL BLOOD GAS pH 7.47 (7.35-7.45)
--- NOTE | 2020-01-02 13:00 | NUR ---
Report taken from Mick. Pt resting in room 307 at this time. He is A/O x4. His breathing is even and unlabored on 5L O2 via NC. Denies SOB at this time, had some with transfer of rooms d/t oxygen being off per patient. No pain at this time. IV started to LFA. No N/V. Lungs diminished. LLL inspiratory wheeze. intermittent cough, reports hemoptysis has improved. Request for humidification for O2 to RT. POC discussed with patient. No needs at this time. Call light within reach.
[2020-01-02 17:31] LABS: COLLECTION METHOD CLEAN CATCH
[2020-01-02 17:49] LABS: PH 6 (5-8); SQUAMOUS EPITHELIAL None Seen /hpf; URINE APPEARANCE Clear; URINE BACTERIA None Seen /hpf; URINE BILIRUBIN Negative (NEGATIVE); URINE BLOOD Negative (NEGATIVE); URINE COLOR Straw; URINE GLUCOSE Negative (NEGATIVE); URINE KETONE Negative (NEGATIVE); URINE LEUKOCYTE ESTERASE Negative (NEGATIVE); URINE NITRATE Negative (NEGATIVE); URINE PROTEIN(semi-quant) Negative (NEGATIVE); URINE RBC 0-2 /hpf; URINE UROBILINOGEN Negative (NEGATIVE)
--- NOTE | 2020-01-02 20:45 | NUR ---
Assessment complete. Resting in bed, watching television. Denies pain/discomfort. Denies needs at this time.
[2020-01-03 00:20] VITALS: BP 95/71; PULSE 96; TEMP 97.5
[2020-01-03 03:26] VITALS: BP 129/71; PULSE 85; TEMP 98
[2020-01-03 05:34] LABS: ARTERIAL BLD GAS O2 SATURATION 85.4 % (92-100); ARTERIAL BLD GAS TCO2 CT 26.1; ARTERIAL BLOOD GAS BASE EXCESS 0.6 (-2-2); ARTERIAL BLOOD GAS HCO3 24.9 meq/L (22-26); ARTERIAL BLOOD GAS PCO2 39.1 mmHg (35-45); ARTERIAL BLOOD GAS pH 7.42 (7.35-7.45)
--- NOTE | 2020-01-03 05:36 | NUR ---
BLOOD GAS DRAWN AND SPO2 85% ON 4 LPM. FLOW INCREASED TO 5 LPM.
[2020-01-03 07:05] LABS: BASO % 0.1 % (0.0-2.0); GRAN # 12.1 (1.4-6.5); GRAN % 83.9 % (42.2-75.2); HEMATOCRIT 38.3 % (42.0-52.0); HEMOGLOBIN 12.1 g/dl (13.5-18.0); LYMPH # 1.2 (1.2-3.4); LYMPH % 8.2 % (20.0-51.0); MEAN CELL VOLUME 100 fl (80.0-100.0); MEAN CORPUSCULAR HEMOGLOBIN 32 pg (27.0-31.0); MEAN CORPUSCULAR HGB CONC 32 g/dl (33.0-37.0); MEAN PLATELET VOLUME 11.3 fl (7.4-10.4); MONO # 1.1 (0.1-0.6); MONO % 7.4 % (1.7-9.3); PLATELET COUNT 353 K/mm3 (130-400); RED BLOOD COUNT 3.82 M/mm3 (4.20-5.60); REDCELL DISTRIBUTION WIDTH-CV 13.2 % (11.5-14.5)
[2020-01-03 07:20] VITALS: BP 149/93; PULSE 94; TEMP 97.9
[2020-01-03 07:23] LABS: ALBUMIN 4.3 gm/dL (3.5-5.0); BILIRUBIN,TOTAL 0.3 mg/dL (0.0-1.0); CREATININE, serum 0.89 (0.66-1.25); MAGNESIUM 2.3 mg/dL (1.6-2.3); PHOSPHOROUS 4.3 mg/dL (2.5-4.5); POTASSIUM 4.4 mmol/L (3.4-5.0); TOTAL PROTEIN 7.3 gm/dL (6.4-8.2)
--- NOTE | 2020-01-03 09:45 | NUR ---
PATIENT IS AWAKE AND ALERT IN ROOM, IS AT BEDSIDE. OBSERVED AMBULATING TO RESTROOM, WALKED SBA ASSISTANCE FROM STAFF, DID ASSIST WITH MANAGEMENT OF OXYGEN TUBING. PATIENT REPORTS HE ONLY VOIDED, NO STOOL YET. HE SAID HE HAS ONLY HAD A FEW SMALL BOWEL MOVEMENTS SINCE HE HAS BEEN HERE. I DID OFFER TO REQUEST A STOOL SOFTENER FROM THE PROVIDER AND HE STATED THAT HE HAD ORDERED APPLE JUICE AND APPLES FOR LUNCH AND WOULD SEE HOW THAT WOULD DO FOR HIM, HE WILL NOTIFY STAFF IF HE DOESN'T RECEIVE RESULTS. NO OTHER NEEDS ARE IDENTIFIED. CALL LIGHT IS WITHIN REACH.
[2020-01-03 11:57] VITALS: BP 133/78; PULSE 96; TEMP 98.1
[2020-01-03 17:07] VITALS: BP 95/67; PULSE 94; TEMP 98.7
--- NOTE | 2020-01-03 18:34 | NUR ---
PATIENT IS SITTING UP IN BED WITH AT BEDSIDE, MEDICATIONS ADMINISTERED, EATING SUPPER.
[2020-01-03 19:23] VITALS: BP 149/87; PULSE 89; TEMP 98.5
--- NOTE | 2020-01-03 20:00 | NUR ---
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 Assessment complete. VS stable. A&Ox3. Denies pain/nausea. States only short of breath with activity. O2@4L/HFNC-O2 saturation 92. INT to left forearm flushes without difficulty. Plan of care discussed for this shift to include HS meds/calling for needs. Verbalizes understanding. Denies needs. Call light in reach. Will monitor.
[2020-01-04] VITALS (8 sets, daily range): BP systolic 124–159; BP diastolic 65–93; PULSE 70–110; TEMP 97.3–98.5
--- NOTE | 2020-01-04 00:03 | NUR ---
Resting in bed watching TV. Denies current needs. VS have remained stable. Call light in reach. Will monitor.
--- NOTE | 2020-01-04 01:00 | NUR ---
Called stating he had a dry spot in his nose and he picked at it and caused a bloody nose. Currently active bleeding to right nostril. Gauze to right nare and instructed to not blow. Verbalizes understanding.
--- NOTE | 2020-01-04 02:30 | NUR ---
No active bleeding to right nostril noted. States he feels a little congested on that side but he tried to blow it earlier and it started bleeding once again. Encouraged to wait for blowing for a few hours. Verbalizes understanding. Will monitor.
--- NOTE | 2020-01-04 05:00 | NUR ---
Sitting up in bed watching TV and drinking coffee. Denies pain/nausea. Shortness of breath with activity. States he hasnt had anymore bloody nose so far. No other changes over this shift. Call light in reach. Will monitor.
--- NOTE | 2020-01-04 06:41 | NUR ---
Called with c/o increased shortness of breath. Cardiopulm in room to do EKG and aware.
[2020-01-04 08:37] LABS: BASO % 0.1 % (0.0-2.0); EOS % 0.1 % (0-4.0); GRAN # 9.9 (1.4-6.5); GRAN % 77.2 % (42.2-75.2); HEMATOCRIT 37.4 % (42.0-52.0); LYMPH # 1.5 (1.2-3.4); LYMPH % 11.5 % (20.0-51.0); MEAN CELL VOLUME 100 fl (80.0-100.0); MEAN CORPUSCULAR HEMOGLOBIN 32 pg (27.0-31.0); MEAN CORPUSCULAR HGB CONC 32 g/dl (33.0-37.0); MEAN PLATELET VOLUME 11.3 fl (7.4-10.4); MONO # 1.3 (0.1-0.6); MONO % 10.4 % (1.7-9.3); PLATELET COUNT 341 K/mm3 (130-400); RED BLOOD COUNT 3.76 M/mm3 (4.20-5.60)
[2020-01-04 08:49] LABS: CALCIUM 9.8 mg/dL (8.4-10.2); CREATININE, serum 0.81 (0.66-1.25); POTASSIUM 4.6 mmol/L (3.4-5.0)
--- NOTE | 2020-01-04 09:26 | NUR ---
MAGALIE: PT AOX4. AT BEDSIDE. REPORTS MORE CONGESTION THIS AM WITH INCREASED SOB AT REST AND WITH AMBULATION. LUNGS DIMINISHED THROUGHOUT WITH FINE CRACKLES ON RT LOBES. DENIES CHEST PAIN/PRESSURE. DR AWARE OF INCREASED SOB. PT COUGHED UP DARK RED THICK SPUTUM. HAD NOSE BLEED MOST OF NIGHT THROUGH AM PER WOODEN TANK ERECTOR. ON 6L NC. VS CHARTED. WILL CONT TO MONITOR
--- NOTE | 2020-01-04 17:00 | NUR ---
PT WAS TACHTCARDIC UP TO 120S THIS AFTERNOON. HE WAS UP TAKING A SHOWER. RESOLVED TO 70S WHEN DONE
--- NOTE | 2020-01-04 20:30 | NUR ---
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 Assessment complete. A&Ox3. VS stable. Denies pain/nausea. Dyspnea with activity. States he is overall feeling better this shift compared to last night. States he is less short of breath. Denies anymore nose bleeds. Did state he coughed up a quarter size blood clot late on day shift but nothing since. Plan of care discussed for this shift to inclulde calling for needs, increased shortness of air or bleeding. Verbalizes understanding. Call light in reach. Will monitor.
[2020-01-05 03:41] VITALS: BP 145/76; PULSE 94; TEMP 97.9
[2020-01-05 06:00] LABS: BASO % 0.1 % (0.0-2.0); EOS % 0.3 % (0-4.0); GRAN # 8.6 (1.4-6.5); HEMOGLOBIN 11.8 g/dl (13.5-18.0); LYMPH # 2.3 (1.2-3.4); LYMPH % 18.4 % (20.0-51.0); MEAN CELL VOLUME 99 fl (80.0-100.0); MEAN CORPUSCULAR HEMOGLOBIN 32 pg (27.0-31.0); MEAN CORPUSCULAR HGB CONC 32 g/dl (33.0-37.0); MONO # 1.4 (0.1-0.6); MONO % 11.2 % (1.7-9.3); PLATELET COUNT 342 K/mm3 (130-400); RED BLOOD COUNT 3.69 M/mm3 (4.20-5.60); REDCELL DISTRIBUTION WIDTH-CV 12.8 % (11.5-14.5)
--- NOTE | 2020-01-05 06:00 | NUR ---
Rested better last night. No nose bleeds this shift. States he has a sore spot in his throat but trying to ignore it. Denied pain/nausea. States shortness of breath is better-O2 continues to be at 4.5-5L/NC. States he thinks he is ready to go home today compared to yesterday. Denies current needs. Call light in reach. Will monitor.
[2020-01-05 06:09] LABS: CALCIUM 9.5 mg/dL (8.4-10.2); CREATININE, serum 0.85 (0.66-1.25); MAGNESIUM 2.3 mg/dL (1.6-2.3); POTASSIUM 4.4 mmol/L (3.4-5.0)
[2020-01-05 06:10] LABS: HEMATOCRIT 36.5 % (42.0-52.0)
[2020-01-05 07:22] VITALS: BP 156/79; PULSE 89; TEMP 98.5
[2020-01-05 11:10] VITALS: BP 131/73; PULSE 93; TEMP 97.7
[2020-01-05] MEDS ORDERED: LEVAQUIN 750MG750 M1 PO (11:41)
[2020-01-05] MEDS ORDERED: XANAX .25M0.25 MG/TA PO (11:42)
[2020-01-05] MEDS ORDERED: PREDNISONE 5MG5 MG PO (11:44)
--- NOTE | 2020-01-05 13:28 | NUR ---
PT DISCHARGED TO HOME ACCOMPANIED BY @ 4166. TRANSFERED WITH HOME OXYGEN. DENIES PAIN. MILD SOB PRESENT. NO NEW CONCERNS. PT WITH DR GUTIÉRREZ ONCOLOGY APPT TOMORROW 01/05 @ 10AM PER . DSICHARGE INSTRUCTIONS GIVEN TO CALL FOR OTHER APPOINTMENTS.
== END 2020-01-05 13:05 | disposition home or self-care (01) | DRG 180 ==
LOC: COL.ER 10:26 → ICU 12:44 → IMCU 01-01 18:34 → MEDICAL 01-02 09:54
PROVIDERS: Family Medicine; Internal Medicine; Internal Medicine Pulmonary Disease; Student in an Organized Health Care Education/Training Program; ADMIT Hospitalist
DX: C34.90 Malignant neoplasm of unspecified part of unspecified bronchus or lung (principal); J18.9 Pneumonia, unspecified organism; J96.01 Acute respiratory failure with hypoxia; R04.2 Hemoptysis; J44.0 Chronic obstructive pulmonary disease with (acute) lower respiratory infection; R00.0 Tachycardia, unspecified; E78.5 Hyperlipidemia, unspecified; F41.9 Anxiety disorder, unspecified; I25.10 Atherosclerotic heart disease of native coronary artery without angina pectoris; R53.81 Other malaise; I10 Essential (primary) hypertension; K22.70 Barrett's esophagus without dysplasia; Z87.891 Personal history of nicotine dependence
CPT/HCPCS: 99223-AI; 99232-AI; 99233-AI; 99239; J0692; J0696; J1650; J1956; J2920; J7120; J7512; Q9967

== ENCOUNTER 2020-10-28 09:00 | Outpatient (RCR) | payer MEDICARE, BC ==
[~2020-10-28 09:00] MED LIST changes: +CEFTIN500 MG PO; +FOLIC ACID 11 MG/TA1 PO; +LEVAQUIN 750MG750 M1 PO; +MEDROL 4MG DOSPA4 MG PO; +NEB MC; +PREDNISONE 5MG5 MG PO; +PROAIR HFA0.09 MG/AC IH; +RT ALBUTER2.5 MG/0.5 IH; -THEO-24 30300 MG/CAP PO; +XANAX .25M0.25 MG/TA PO; +ZITHROMAX 250M250 MG PO
[2020-11-04] MEDS ORDERED: CENTRUM SILVER1 TAB PO (19:28)
[2020-11-04] MEDS ORDERED: AMARYL1 MG PO (19:29)
[2020-11-04] MEDS ORDERED: DALIRESP500 MCG PO (19:30)
[2020-11-04] MEDS ORDERED: ATARAX 25MG25 MG/TAB PO (19:30)
[2020-11-04] MEDS ORDERED: DECADRON 4MG TAB4 MG PO (19:32)
[2020-11-04] MEDS ORDERED: ZOFRAN8 MG PO (19:33)
[2020-11-04] MEDS ORDERED: PREDNISONE10 MG PO (19:33)
== END 2020-12-23 13:47 | disposition home or self-care (01) ==
LOC: WSPT 09:00
DX: M54.5 Low back pain (principal); M19.011 Primary osteoarthritis, right shoulder

== ENCOUNTER 2020-11-04 12:57 | Outpatient (CLI) | payer MEDICARE, BC ==
[~2020-11-04] VITALS: Ht 175.3 cm; Wt 59.2 kg
[2020-11-04 13:32] VITALS: BP 139/72; PULSE 87; TEMP 98.3
[2020-11-04] MEDS ORDERED: CENTRUM SILVER1 TAB PO (19:28)
[2020-11-04] MEDS ORDERED: AMARYL1 MG PO (19:29)
[2020-11-04] MEDS ORDERED: DALIRESP500 MCG PO (19:30)
[2020-11-04] MEDS ORDERED: ATARAX 25MG25 MG/TAB PO (19:30)
[2020-11-04] MEDS ORDERED: DECADRON 4MG TAB4 MG PO (19:32)
[2020-11-04] MEDS ORDERED: ZOFRAN8 MG PO (19:33)
[2020-11-04] MEDS ORDERED: PREDNISONE10 MG PO (19:33)
== END 2020-11-04 19:34 | disposition home or self-care (01) ==
LOC: EUO 12:57
DX: M81.0 Age-related osteoporosis without current pathological fracture (principal)
CPT/HCPCS: J3489

== ENCOUNTER 2020-12-25 13:00 | Outpatient (RCR) | payer MEDICARE, BC ==
[~2020-12-25] VITALS: Ht 175.3 cm; Wt 59.0 kg
[2020-12-25] VITALS (10 sets, daily range): BP systolic 127–168; BP diastolic 76–91; PULSE 85–96; TEMP 97–98.5
[~2020-12-25 13:00] MED LIST changes: +AMARYL1 MG PO; +DALIRESP500 MCG PO; +DECADRON 4MG TAB4 MG PO; +PREDNISONE10 MG PO; +ZOFRAN8 MG PO
--- NOTE | 2020-12-25 18:25 | NUR ---
IV D'CD INTACT AND WRAPPED, PT HAS NO C/O, HERE, DISCHARGED VIA W/C WITH OWN 02 TO CAR
== END 2020-12-25 18:40 | disposition home or self-care (01) ==
LOC: EUO 13:00
DX: C34.90 Malignant neoplasm of unspecified part of unspecified bronchus or lung (principal)
CPT/HCPCS: J7050; P9040

== ENCOUNTER → 2021-01-22 | Outpatient (CLI) | payer MEDICARE, BC ==
[~2021-01-22] MED LIST changes: +DOXYCYCLINE 10100 MG PO; +KEYTRUDA25 MG/ML IV; +VITAMIN C500 MG PO; +ZITHROMAX Z PA250 MG PO
== END ==
LOC: COL.VAS 10:00
DX: M79.89 Other specified soft tissue disorders (principal)

== ENCOUNTER 2021-01-28 11:06 | Inpatient (IN) | payer MEDICARE, BC ==
[~2021-01-28] VITALS: Ht 175.3 cm; Wt 57.8 kg
[~2021-01-28 11:06] MED LIST changes: -DOXYCYCLINE 10100 MG PO; -KEYTRUDA25 MG/ML IV; -VITAMIN C500 MG PO; -ZITHROMAX Z PA250 MG PO
[2021-01-28 14:25] LABS: MEAN CELL VOLUME 97 fl (80.0-100.0); MEAN CORPUSCULAR HGB CONC 34 g/dl (33.0-37.0); MEAN PLATELET VOLUME 10.4 fl (7.4-10.4); PLATELET COUNT 206 K/mm3 (130-400); RED BLOOD COUNT 2.34 M/mm3 (4.20-5.60); REDCELL DISTRIBUTION WIDTH-CV 18.8 % (11.5-14.5)
[2021-01-28 14:28] LABS: HEMATOCRIT 22.6 % (42.0-52.0); HEMOGLOBIN 7.7 g/dl (13.5-18.0); MEAN CORPUSCULAR HEMOGLOBIN 33 pg (27.0-31.0)
[2021-01-28 14:33] LABS: ALBUMIN 3.5 gm/dL (3.5-5.0); BILIRUBIN,TOTAL 0.6 mg/dL (0.0-1.0); CALCIUM 8.5 mg/dL (8.4-10.2); CREATININE, serum 0.84 (0.66-1.25); POTASSIUM 3.5 mmol/L (3.4-5.0); TOTAL PROTEIN 6.3 gm/dL (6.4-8.2)
[2021-01-28 14:57] LABS: LYMPHOCYTE 2 % (20.0-51.0); NEUTROPHILS 96 % (42.0-75.2)
[2021-01-28 14:59] LABS: PLATELET ESTIMATE NORMAL (NORMAL)
[2021-01-28 15:00] LABS: SCHISTOCYTES 1+; SPHEROCYTE 1+
[2021-01-28 15:40] LABS: COLLECTION METHOD CLEAN CATCH
[2021-01-28 15:53] LABS: MUCOUS Present /lpf; PH 5 (5-8); SQUAMOUS EPITHELIAL 0-2 /hpf; URINE APPEARANCE Hazy; URINE BACTERIA Rare /hpf; URINE BILIRUBIN Negative (NEGATIVE); URINE BLOOD Negative (NEGATIVE); URINE COLOR Amber; URINE GLUCOSE Negative (NEGATIVE); URINE KETONE Trace (NEGATIVE); URINE LEUKOCYTE ESTERASE Negative (NEGATIVE); URINE NITRATE Negative (NEGATIVE); URINE PROTEIN(semi-quant) 2+ (NEGATIVE); URINE RBC 0-2 /hpf
[2021-01-28 17:26] LABS: RETIC # 0.02 M/mm3 (0.02-0.16)
[2021-01-28 17:34] LABS: IRON,SERUM 23 ug/dL (35-150)
[2021-01-28 17:43] LABS: TOTAL IRON BINDING CAPACITY 231 ug/dL (261-462)
--- NOTE | 2021-01-28 19:45 | NUR ---
RECEIVED REPORT FROM ELENI MORENO, FROM Jacque PATIENT ARRIVED TO ROOM VIA W/C, ACCOMPANIED BY Jacque MORENO. FAMILY MEMBER PRESENT WITH PATIENT. PERSONAL OXYGEN CANNULA IN PLACE TO NARES. PATIENT VOICING IRRITATION WITH HAVING TO WAIT TO GET ADMITTED TO UNIT. WANTS TO WAIT "TEN MINUTES TO COOL DOWN" BEFORE VS ARE TAKEN. SIPS OF WATER ARE TOLERATED AT THIS TIME.
[2021-01-28 20:08] VITALS: BP 132/64; PULSE 92; TEMP 96.9
--- NOTE | 2021-01-28 20:25 | NUR ---
PATIENT REPORTS HAS PRODUCTIVE COUGH "USUALLY IN THE MORNING WHEN I'VE LAYING DOWN AT NIGHT". DENIES SHORTNESS OF BREATHE AT THIS TIME. PATIENT DENIES URGE TO VOID WHEN INFORMED UA SPEC WAS NEEDED.
[2021-01-28 23:30] VITALS: BP 128/64; PULSE 98; TEMP 97.7
[2021-01-29] VITALS (12 sets, daily range): BP systolic 108–142; BP diastolic 58–70; PULSE 56–100; TEMP 98–99.1; O2SAT 97–99
--- NOTE | 2021-01-29 07:30 | NUR ---
PATIENT IS UP IN ROOM. UPSET WITH LAB COMING IN BECAUSE HE WANTS TO KNOW IF PEOPLE GOING INTO HIS ROOM ARE VACCINATED FOR COVID. TOLD LAB TO "GET THE f OUT OF HIS ROOM" AND THAT HE NEEDED SPACE. WAS SAYING THAT [facility] BECAUSE "THEY TAKE BETTER CARE OF HIM THERE". PATIENT LEFT TO BE ALONE PER REQUEST. CALL LIGHT WITHIN REACH.
--- NOTE | 2021-01-29 07:36 | NUR ---
CHANGE OF SHIFT REPORT GIVEN TO DAY SHIFT NURSESIMÓN RN
--- NOTE | 2021-01-29 08:15 | NUR ---
WENT IN TO GIVE PATIENT MORNING MEDDS PER ORDERS AND COMPLETE HEAD TO TOE ASSESSMENT. PATIENT MUCH MORE PLEASANT AND COMPLIANT BUT WANTS TO SPEAK TO THE DOCTOR. PATIENT EATING BREAKFAST AND STATES HE IS "FEELING BETTER BECAUSE ALL HE GOT TO EAT YESTERDAY WAS A TURKEY SANDWICH". PATIENT COMPLAINS ABOUT A SOUND ENGINEER THAT "WAS NOT WEARING A MASK". PATIENT HAS IV TO LEFT AC. RIGHT ARM IS SWOLLEN AND BILATERAL LEGS HAVE SLIGHT ABRASIONS. PATIENT WEARS HEARING AIDS AND GLASSES. PATIENT FROM [place] AND IS ALLERGIC TO NICKEL AND HONEY BEE VENOM. PATIENT ON 6L OXYGEN NOW, COMPARED TO HIS NORMAL OF 5 AT HOME. CALL LIGHT WITHIN REACH. NO FURTHER NEEDS AT THIS TIME. HEAD TO TOE ASSESSMENT COMPLETE.
--- NOTE | 2021-01-29 09:00 | NUR ---
WENT INTO PATIENT ROOM TO CHANGE BEDDDING WITH AID. PATIENT WAS CURSING AT NURSE AND AID AND YELLING FOR US TO GET OUT OF THE ROOM. PATIENT WAS COMPLAINING ABOUT CARE AND YELLING THAT HE "JUST NEEDED A MINUTE AND WANTED TO SPEAK WITH THE DOCTOR". PATIENT WAS HELPED BACK TO BED AND LEFT TO DECREASE HIS ANXIETY. CALL LIGHT WITHIN REACH
--- NOTE | 2021-01-29 09:11 | NUR ---
shed workers supervisor attempts to discuss discharge plan with the patient. Patient verbalizes that he is upset at the moment and would like me to come back at a later time.
--- NOTE | 2021-01-29 09:30 | NUR ---
TELE CALLED WITH PATIENT IN TACHYCARDIA OF 111. AND RT SAID PATIENT WAS SATING AT 87%. MOVED TO 7L O2. PATIENT TOLD THEM TO "GET OUT SO HE COULD EAT HIS BREAKFAST". PATIENT STATES HIS VITALS ARE LIKE THIS BECAUSE HE "IS WORKED UP AND NEEDS TO BE ALONE". PATIENT CALLED DOWN AND VITALS STABILIZED. CALL LIGHT WITHIN REACH.
--- NOTE | 2021-01-29 10:00 | NUR ---
DR BREWSTER IN ROOM. PATIENT WAS TOLD THAT HE NEEDS TO "RESPECT PEOPLE THAT RESPECT HIM AND THAT HIS YELLING AT STAFF WILL NOT BE TOLERATED." PATIENT WAS COMPLIANT TO THIS.
--- NOTE | 2021-01-29 10:30 | NUR ---
TELE CALLED AND SAID PATIENT IS IN POSSIBLE A. FIB. HOSPITALIST NOTIFIED. EKG AND CARDIO CONSULT ORDERED.
--- NOTE | 2021-01-29 11:58 | NUR ---
AT BEDSIDE. PATIENT IS MUCH MORE PLEASANT AND APOLOGIZED FOR HIS EARLIER BEHAVIOR. STATES "HE GOT WORKED UP AND LOST HIS COOL"
[2021-01-29 12:04] LABS: MEAN CELL VOLUME 101 fl (80.0-100.0); MEAN CORPUSCULAR HGB CONC 32 g/dl (33.0-37.0); MEAN PLATELET VOLUME 10.2 fl (7.4-10.4); PLATELET COUNT 276 K/mm3 (130-400); RED BLOOD COUNT 2.24 M/mm3 (4.20-5.60); REDCELL DISTRIBUTION WIDTH-CV 18.9 % (11.5-14.5)
[2021-01-29 12:05] LABS: HEMATOCRIT 22.7 % (42.0-52.0); HEMOGLOBIN 7.3 g/dl (13.5-18.0); MEAN CORPUSCULAR HEMOGLOBIN 33 pg (27.0-31.0)
[2021-01-29 12:08] LABS: CALCIUM 8.2 mg/dL (8.4-10.2); CREATININE, serum 0.67 (0.66-1.25); POTASSIUM 3.4 mmol/L (3.4-5.0)
[2021-01-29 12:41] LABS: BAND 17 % (0-10); LYMPHOCYTE 6 % (20.0-51.0); METAMYELOCYTE 2 % (0-0); NEUTROPHILS 72 % (42.0-75.2); NUCLEATED RED BLOOD CELL 1 (0-6); PLATELET ESTIMATE NORMAL (NORMAL)
[2021-01-29 12:42] LABS: OVALOCYTES 1+; TEAR DROP CELLS 1+
[2021-01-29 13:54] LABS: PATHOLOGY DIFF REVIEW OK
--- NOTE | 2021-01-29 14:37 | NUR ---
First visit from the grade and center marker. No needs right now.
--- NOTE | 2021-01-29 18:00 | NUR ---
PATIENT CALMED DOWN THROUGHOUT THE DAY. PATIENT COMPLAINING OF SWEATING RIGHT NOW. HE IS SLEEPING IN BED. NO FURTHER NEEDS AT THIS TIME. WILL REPORT TO DAY SHIFT.
[2021-01-29 19:10] LABS: ARTERIAL BLD GAS O2 SATURATION 91.4 % (92-100); ARTERIAL BLD GAS TCO2 CT 28.7; ARTERIAL BLOOD GAS HCO3 27.3 meq/L (22-26); ARTERIAL BLOOD GAS PO2 63.5 mmHg (80-100); ARTERIAL BLOOD GAS pH 7.39 (7.35-7.45)
[2021-01-29 19:10] LABS: MEAN CELL VOLUME 105 fl (80.0-100.0); MEAN CORPUSCULAR HGB CONC 32 g/dl (33.0-37.0); MEAN PLATELET VOLUME 9.9 fl (7.4-10.4); PLATELET COUNT 243 K/mm3 (130-400); RED BLOOD COUNT 2.06 M/mm3 (4.20-5.60); REDCELL DISTRIBUTION WIDTH-CV 18.9 % (11.5-14.5)
[2021-01-29 19:21] LABS: HEMATOCRIT 21.6 % (42.0-52.0); HEMOGLOBIN 6.8 g/dl (13.5-18.0); MEAN CORPUSCULAR HEMOGLOBIN 33 pg (27.0-31.0)
[2021-01-29 19:23] LABS: CALCIUM 7.8 mg/dL (8.4-10.2); CREATININE, serum 0.6 (0.66-1.25)
[2021-01-29 19:33] LABS: POTASSIUM 2.9 mmol/L (3.4-5.0)
--- NOTE | 2021-01-29 19:47 | NUR ---
I WENT INTO PATIENT'S ROOM AT 1730 TO FIND HIM SWEATING. I TURNED DOWN THE AC AND GAVE HIM A WET WASHCLOTH. CAME OUT AT 1800 AND STATED THE PATIENT WAS NOT ANSWERING HER QUESTIONS AND WAS VERY CONFUSED. I WENT IN TO SEE STATUS HAD CHANGED. I CALLED THE CHARGE NURSE, AND DR BREWSTER. DR BREWSTER ORDERED AN ABG, CHEST X-RAY, AND EKG. PATIENT CONTIONUED TO NOT GET BETTER. BLOOD GLUCOSE WAS TAKEN AND WAS 11. DR BREWSTER NOTIFIED AGAIN. DEXTROSE AND GLUCAGON GIVEN IV. BLOOD SUGAR WENT BACK INTO 100S. PATIENT GIVEN WARMING BLANKET FOR TEMP OF 93.5. PATIENT GIVEN PEANUT BUTTER CRACKERS AND ORANGE JUICE. BLOOD SUGAR STABILIZED. PATIENT STATES "HE IS COMING BACK AND FEELS MUCH BETTER". PATIENT IS NOW STABLE. CALLED [facility] TO REPORT H&H OF 6.8. SHE ORDERED UNIT OF BLOOD. REPORTED OFF TO JOSH CERDA. AND ZAIDA REPORTED CRITICAL POTASSIUM TO ALLSION OF 2.9.
[2021-01-29 19:51] LABS: BAND 6 % (0-10); LYMPHOCYTE 12 % (20.0-51.0); NEUTROPHILS 73 % (42.0-75.2); NUCLEATED RED BLOOD CELL 2 (0-6); PLATELET ESTIMATE NORMAL (NORMAL)
[2021-01-29 19:52] LABS: HYPOCHROMIA 1+
[2021-01-29 19:56] LABS: ANISOCYTOSIS 2+; POIKILOCYTOSIS 1+
[2021-01-29 19:57] LABS: SCHISTOCYTES 1+
[2021-01-29 19:58] LABS: POLYCHROMASIA 1+; TEAR DROP CELLS 1+
[2021-01-29 19:59] LABS: OVALOCYTES 1+
--- NOTE | 2021-01-29 20:03 | NUR ---
Call placed to Michelle Ely re: critical potassium level - see new orders, patient is awake, alert, bear hugger in use, potassium started, at bedside, no c/o pain at this time. O2@ 4L per NC in use, call lei w/i reach, updated patient and family on new orders and plan of care. Verbalized understanding.
[2021-01-29 20:41] LABS: ARTERIAL BLD GAS O2 SATURATION 94.2 % (92-100); ARTERIAL BLD GAS TCO2 CT 26.5; ARTERIAL BLOOD GAS BASE EXCESS -0.6 (-2-2); ARTERIAL BLOOD GAS HCO3 25.1 meq/L (22-26); ARTERIAL BLOOD GAS PCO2 46.6 mmHg (35-45); ARTERIAL BLOOD GAS PO2 73.9 mmHg (80-100); ARTERIAL BLOOD GAS pH 7.35 (7.35-7.45)
[2021-01-29 20:58] LABS: ALBUMIN 3.1 gm/dL (3.5-5.0)
[2021-01-29 21:08] LABS: PRE ALBUMIN 13.5 mg/dL (17.6-36.0); PROTHROMBIN TIME 11.1 SECONDS (9.7-12.8)
--- NOTE | 2021-01-29 21:20 | NUR ---
Patient blood sugar continues to fluctuate despite treatment, diaphoretic, SPO2@83% on O2@6L per NC, changed to Oxymask @10L to recover to 93%, Michelle Ely at bedside, see new orders, transfer to ICU, report called to Octavia MORENO ICU, transferred patient and belongings to Room 4 in ICU, at bedside and updated on plan of care.
--- NOTE | 2021-01-29 21:43 | NUR ---
Vancomycin Initial Dosing Pharmacy Note Ordering provider: Maria E Almanzar DO Indication/duration: WORSENING PNA / 7 DAYS GOAL: 15-20 HX: NOT APPLICABLE 2/2 PREVIOUS VANC LEVEL NOT DRAWN AT STEADY STATE BMI: 17.5 WT: 53.9 KG SCR: 0.6 ESTCRCL ~ 84 ML/MIN T 1/2 ~ 9H PT NOW REQUIRING BIPAP TMAX: 99.1 WBC: 14.7->16.2->16.4 01/28 BCx2 REPORTING NGX12H 01/29 REPEAT BCx2 / SPUTUM CX IN PROCESS 01/28 CXR REPORTING PERSISTENT BILATERAL AIRSPACE DISEASE PT LOADED WITH 1 GM (~19 MG/KG) X1. PT THEN STARTED ON 750 MG Q12H FOR MAINTENANCE REGIMEN. WILL FOLLOW CLOSELY PT UNLIKELY TO FOLLOW POPULATION BASED KINETICS. WILL FOLLOW RENAL FUNCTION, MICRO, AND PLAN OF CARE FOR NEED TO ADJUST THERAPY. THANK YOU FOR THIS DOSING CONSULT!
--- NOTE | 2021-01-29 22:00 | NUR ---
PT TO ICU 6 PER BED. PT TRANSFERRED SELF TO ICU BED. VSS. GLUCOSE ASSESSED, 39 ON ARRIVAL. D50 1 AMP GIVEN DOCUMENTED IN JUL. DR BREWSTER AND [facility] CH[facility]IS AT BEDSIDE. PT DROWSY BUT WAKES TO NAME. ORIENTED TO BED AND SURROUNDINGS. AT BEDSIDE. CALL LIGHT WITHIN REACH.
[2021-01-29 22:19] LABS: TROPONIN-I 0.013 ng/mL (0.000-0.035)
[2021-01-29 23:30] LABS: ARTERIAL BLD GAS O2 SATURATION 93.2 % (92-100); ARTERIAL BLD GAS TCO2 CT 26.4; ARTERIAL BLOOD GAS BASE EXCESS 0.2 (-2-2); ARTERIAL BLOOD GAS HCO3 25.1 meq/L (22-26); ARTERIAL BLOOD GAS PCO2 41.9 mmHg (35-45); ARTERIAL BLOOD GAS PO2 68.9 mmHg (80-100)
[2021-01-30] VITALS (290 sets, daily range): BP systolic 121–154; BP diastolic 58–85; PULSE 81–110; TEMP 97.6–998.1; O2SAT 73–100
--- NOTE | 2021-01-30 01:32 | NUR ---
PM MEDS GIVEN LATE DOCUMENTED IN JUL. PT PREVIOUSLY DROWSY AND SLEEPING EASILY BUT AWAKES AROUND 0000. [facility] OKAY TO GIVE OM MEDS. MOINTORING GLUCOSE, LAST READING 78, INCREASED FROM 75. VSS, AFEBRILE. USING URINAL TO VOID. BIPAP IN PLACE, PT DOES MOVE MASK FREQUENTLY. PT BECOMING IRRITABLE WITH CARES. CALL LIGHT WITHIN REACH.
[2021-01-30 03:27] LABS: MEAN CELL VOLUME 101 fl (80.0-100.0); MEAN CORPUSCULAR HGB CONC 33 g/dl (33.0-37.0); MEAN PLATELET VOLUME 9.8 fl (7.4-10.4); PLATELET COUNT 292 K/mm3 (130-400)
[2021-01-30 03:32] LABS: HEMATOCRIT 21.2 % (42.0-52.0); HEMOGLOBIN 6.9 g/dl (13.5-18.0); MEAN CORPUSCULAR HEMOGLOBIN 33 pg (27.0-31.0)
[2021-01-30 03:37] LABS: ALBUMIN 3.1 gm/dL (3.5-5.0); BILIRUBIN,TOTAL 0.3 mg/dL (0.0-1.0); CALCIUM 7.7 mg/dL (8.4-10.2); CREATININE, serum 0.48 (0.66-1.25); POTASSIUM 3.9 mmol/L (3.4-5.0); TOTAL PROTEIN 5.8 gm/dL (6.4-8.2)
[2021-01-30 04:01] LABS: ANISOCYTOSIS 1+; BAND 3 % (0-10); HYPOCHROMIA 1+; LYMPHOCYTE 3 % (20.0-51.0); METAMYELOCYTE 2 % (0-0); NEUTROPHILS 91 % (42.0-75.2); PLATELET ESTIMATE NORMAL (NORMAL)
[2021-01-30 04:02] LABS: SCHISTOCYTES 1+
--- NOTE | 2021-01-30 04:02 | NUR ---
NOTIFIED [facility] CHRIS OF HBG 6.9, BGM 99. PT COMPLAINS OF NICOTINE CRAVINGS, TORB NICOTINE PATCH 7 MG. UPDATED IN IV INFILRATE OF DOXYCYCLINE IN RIGHT AC. SPOKE WITH EPHARM AND NO INTERVENTIONS NEEDED. RIGHT ARM ELEVATED ON PILLOWS.
--- NOTE | 2021-01-30 05:47 | NUR ---
GLUCOSE >90 SINCE 329 THIS AM. PT VERY TALKATIVE AND STATES "I FEEL SO MUCH BETTER." OXYMASK 5L, PT TOLERATING WELL. ADEQUATE OUTPUT. RIGHT ARM ELEVATED ON PILLOW R/T SWELLING. PT HAS NO COMPLAINTS AT THIS TIME. CALL LIGHT WITHIN REACH.
--- NOTE | 2021-01-30 06:52 | NUR ---
RIGHT IJ OOZING AT INSERTION SITE THROUGHOUT NIGHT. STERILE DRESSING CHANGED X2.
[2021-01-31 03:52] VITALS: BP 127/70; PULSE 101; TEMP 98.5
--- NOTE | 2021-01-31 03:59 | NUR ---
Resting quietly, easily awakened, talkative, respirations even and unlabored, skin warm and dry, no s/s of hypo/hyper glycemia, telemetry in use running ST, assisted to bsc x 1 assist, uses call lei appropriately, call lei w/i reach, fall precautions in use, will cont to monitor.
[2021-01-31 08:55] VITALS: BP 153/77; PULSE 109; TEMP 98.7
--- NOTE | 2021-01-31 11:20 | NUR ---
PT UP TO BR SEVERAL TIMES HAS HAD SEVERAL BOWEL MOVEMENTS RETURNED TO BED AFTER MOVING BOWELS.
--- NOTE | 2021-01-31 12:40 | NUR ---
SW met with patient to complete intake. Patient states that he lives in [place] with his Joan [phone]. Patient provides that he uses a walker and a cane frequently to get around. Patient provides that he does not utilize HH services and is independent with ADL's, PCP is Dr. Roque Tolbert, pharmacy is [facility], and states that he is able to afford his medications. Patient provides that his is his DPOA. Patient states his plan is to return home up on DC and has no concern with doing so. SW will continue to follow DC plan: home
[2021-01-31 16:00] VITALS: BP 154/93; PULSE 103; TEMP 98
--- NOTE | 2021-01-31 20:00 | NUR ---
PATIENT IS SITTING UP IN BED. ALERT AND ORIENTED X4. PATIENT HAS CENTRAL LINE TO THE RIGHT NECK. PATIENT IS ON GENERAL DIET WITH ACHS CHECKS. PATIENT DENIES PAIN OR FURTHER NEEDS AT THIS TIME. CALL LIGHT WITHIN REACH. HEAD TO TOE ASSESSMENT COMPLETE.
[2021-01-31 20:15] VITALS: BP 161/75; PULSE 101; TEMP 99
[2021-02-01] VITALS (7 sets, daily range): BP systolic 90–162; BP diastolic 63–84; PULSE 107–116; TEMP 98–100
--- NOTE | 2021-02-01 05:46 | NUR ---
PATIENT IN BATHROOM WITHOUT CALLING AND NOT ALLOWING ME TO STAY IN ROOM EVEN THOUGH HE IS FALL RISK. STATES "HE IS GOING HOME TODAY AND ASKED "DOES IT LOOK LIKE I NEED HELP?"". WILL CHECK ON HIM AGAIN.
--- NOTE | 2021-02-01 06:20 | NUR ---
PATIENT SLEPT ON AND OFF ALL NIGHT. TYLENOL GIVEN PER ORDERS FOR PAIN. NO FURTHER NEEDS AT THIS TIME. CALL LIGHT WITHIN REACH. WILL REPORT TO DAYSHIFT.
[2021-02-01 08:27] LABS: MEAN CELL VOLUME 98 fl (80.0-100.0); MEAN CORPUSCULAR HGB CONC 33 g/dl (33.0-37.0); MEAN PLATELET VOLUME 9.5 fl (7.4-10.4); RED BLOOD COUNT 2.75 M/mm3 (4.20-5.60); REDCELL DISTRIBUTION WIDTH-CV 20.6 % (11.5-14.5)
[2021-02-01 08:31] LABS: HEMATOCRIT 26.9 % (42.0-52.0); HEMOGLOBIN 8.8 g/dl (13.5-18.0); MEAN CORPUSCULAR HEMOGLOBIN 32 pg (27.0-31.0)
[2021-02-01 08:33] LABS: PLATELET COUNT 617 K/mm3 (130-400)
[2021-02-01 08:38] LABS: CALCIUM 8.4 mg/dL (8.4-10.2); CREATININE, serum 0.67 (0.66-1.25); POTASSIUM 3.6 mmol/L (3.4-5.0)
[2021-02-01 09:00] LABS: BAND 4 % (0-10); LYMPHOCYTE 12 % (20.0-51.0); METAMYELOCYTE 2 % (0-0); NEUTROPHILS 77 % (42.0-75.2); NUCLEATED RED BLOOD CELL 1 (0-6)
[2021-02-01 09:01] LABS: ANISOCYTOSIS 2+; MICROCYTOSIS 1+; PLATELET ESTIMATE INCREASED (NORMAL)
[2021-02-01 09:02] LABS: HYPOCHROMIA 1+
[2021-02-01] MEDS ORDERED: LEVAQUIN 750MG750 M1 PO (09:05)
--- NOTE | 2021-02-01 09:24 | NUR ---
SW attended rounds with MD, who stated patient will d/c home to , no needs at this time. As noted by previous SW, patient has DME's and is otherwise indep with ADLs *D/C home w/ no needs
--- NOTE | 2021-02-01 10:05 | NUR ---
Patient resting in bed. Awake & alert. at bedside. rounded this am. Discharge orders obtained. PLan of care reviewed.
--- NOTE | 2021-02-01 11:32 | NUR ---
Patient resting in bed. at bedside. Lunch ordered. Blood sugar 102. storage wharfage clerk assist with discharge paperwork. Patient not in a mccracken to go home.
--- NOTE | 2021-02-01 17:00 | NUR ---
Patient ready for discharge. Patient napped this afternoon. He has been very kind & plesant today. Int x2 DC. Right IJ DC. Patient was supine & taught jose dinero. Pressure held for 10 minutes. Patient given all discharge paperwork. Patient has [facility] for [facility], [facility], [facility] this week with follow up labs. Home med list reviewed, he understand that he needs to complete antibioitc coarse completly. I did ask about glipize continuing & patient may continue. Patient also understand he needs to reviewed his predisone dose with PCP. Patient was wheeled out with all belongings. His supportive taking him home. Earlier in shift I did discuss with Alejandra jennings patient right swollen ar, & she had discussed with who was alredy aware, also verifed orders to DC central line.
== END 2021-02-01 17:00 | disposition home or self-care (01) | DRG 871 ==
LOC: COL.ER 11:06 → SURG 19:44 → ICU 01-29 22:09 → SURG 01-30 17:09
PROVIDERS: Family Medicine; Nurse Practitioner Family; Physician Assistant
PROC: 02HV33Z Insertion of Infusion Device into Superior Vena Cava, Percutaneous Approach (ICD-10-PCS; principal; 2021-01-29)
DX: A41.9 Sepsis, unspecified organism (principal); J18.9 Pneumonia, unspecified organism; J15.9 Unspecified bacterial pneumonia; E43 Unspecified severe protein-calorie malnutrition; J44.1 Chronic obstructive pulmonary disease with (acute) exacerbation; J44.0 Chronic obstructive pulmonary disease with (acute) lower respiratory infection; E87.1 Hypo-osmolality and hyponatremia; Z68.1 Body mass index [BMI] 19.9 or less, adult; D62 Acute posthemorrhagic anemia; E27.40 Unspecified adrenocortical insufficiency; F41.9 Anxiety disorder, unspecified; G47.00 Insomnia, unspecified; Z96.612 Presence of left artificial shoulder joint; Z90.89 Acquired absence of other organs; Z20.822 Contact with and (suspected) exposure to COVID-19; I10 Essential (primary) hypertension; E11.649 Type 2 diabetes mellitus with hypoglycemia without coma; Z98.1 Arthrodesis status
CPT/HCPCS: 99223-AI; 99232-AI; 99233-AI; 99239; A9284; J0456; J0692; J0696; J1610; J1650; J1720; J2930; J3370; J3480; J7030; J7042; J7050; J7131; J7512; P9040

== ENCOUNTER 2021-03-25 17:00 | Emergency (ER) | payer OTHER, BC ==
[~2021-03-25] VITALS: Ht 177.8 cm; Wt 56.8 kg
[2021-03-25 18:20] LABS: INR 1.1 (0.8-3.0); PROTHROMBIN TIME 12.3 SECONDS (9.7-12.8)
[2021-03-25 18:27] LABS: BILIRUBIN,TOTAL 0.3 mg/dL (0.2-1.2); C-REACTIVE PROTEIN 9.53 mg/dL (0.00-0.50); CALCIUM 8.8 mg/dL (8.4-10.2); CREATININE, serum 0.77 mg/dL (0.72-1.25); POTASSIUM 4.7 mmol/L (3.5-4.5); TOTAL PROTEIN 5.7 gm/dL (6.2-8.1)
[2021-03-25 18:32] LABS: MEAN CELL VOLUME 110 fl (80.0-100.0); MEAN CORPUSCULAR HGB CONC 31 g/dl (33.0-37.0); MEAN PLATELET VOLUME 9.7 fl (7.4-10.4); PLATELET COUNT 531 K/mm3 (130-400); RED BLOOD COUNT 2.24 M/mm3 (4.20-5.60); REDCELL DISTRIBUTION WIDTH-CV 17.8 % (11.5-14.5)
[2021-03-25 18:33] LABS: TROPONIN-I 0.019 ng/mL (0.00-0.033)
[2021-03-25 18:34] LABS: HEMATOCRIT 24.6 % (42.0-52.0); HEMOGLOBIN 7.7 g/dl (13.5-18.0); MEAN CORPUSCULAR HEMOGLOBIN 34 pg (27.0-31.0)
[2021-03-25 19:37] LABS: LYMPHOCYTE 13 % (20.0-51.0); MYELOCYTE 2 % (0-0); NEUTROPHILS 76 % (42.0-75.2)
[2021-03-25 19:39] LABS: HYPOCHROMIA 2+; PLATELET ESTIMATE INCREASED (NORMAL)
[2021-03-25 19:40] LABS: ANISOCYTOSIS 1+; SCHISTOCYTES 1+
[2021-03-25 21:01] VITALS: TEMP 98.2
[2021-03-25 22:15] VITALS: BP 113/70; PULSE 78
[2021-03-26 08:03] LABS: PATHOLOGY DIFF REVIEW OK
== END 2021-03-25 22:15 | disposition home or self-care (01) ==
LOC: COL.ER 17:00
PROVIDERS: Nurse Practitioner Primary Care
DX: R50.9 Fever, unspecified (principal); T50.B95A Adverse effect of other viral vaccines, initial encounter; J44.9 Chronic obstructive pulmonary disease, unspecified; I10 Essential (primary) hypertension; F41.9 Anxiety disorder, unspecified; F17.210 Nicotine dependence, cigarettes, uncomplicated; Z79.899 Other long term (current) drug therapy; Z79.02 Long term (current) use of antithrombotics/antiplatelets; Z79.51 Long term (current) use of inhaled steroids; Z79.52 Long term (current) use of systemic steroids
CPT/HCPCS: J7030; Q9967

== ENCOUNTER 2021-03-28 10:40 | Inpatient (IN) | payer OTHER, MEDICARE, BC ==
[~2021-03-28] VITALS: Ht 177.8 cm; Wt 57.6 kg
[2021-03-28 11:17] LABS: MEAN CORPUSCULAR HGB CONC 31 g/dl (33.0-37.0); MEAN PLATELET VOLUME 9.5 fl (7.4-10.4); REDCELL DISTRIBUTION WIDTH-CV 17.1 % (11.5-14.5)
[2021-03-28 11:18] LABS: HEMATOCRIT 27.4 % (42.0-52.0); HEMOGLOBIN 8.6 g/dl (13.5-18.0); MEAN CORPUSCULAR HEMOGLOBIN 33 pg (27.0-31.0)
[2021-03-28 11:19] LABS: MEAN CELL VOLUME 105 fl (80.0-100.0); PLATELET COUNT 912 K/mm3 (130-400)
[2021-03-28 11:35] LABS: ALBUMIN 2.8 gm/dL (3.4-4.8); BILIRUBIN,TOTAL 0.3 mg/dL (0.2-1.2); CALCIUM 8.7 mg/dL (8.4-10.2); CREATININE, serum 0.81 mg/dL (0.72-1.25); POTASSIUM 4.1 mmol/L (3.5-4.5); TOTAL PROTEIN 5.8 gm/dL (6.2-8.1)
[2021-03-28 11:41] LABS: LYMPHOCYTE 2 % (20.0-51.0); NEUTROPHILS 87 % (42.0-75.2)
[2021-03-28 11:42] LABS: ANISOCYTOSIS 1+; HYPOCHROMIA 2+; PLATELET ESTIMATE INCREASED (NORMAL)
[2021-03-28 11:44] LABS: STOMATOCYTE 1+
[2021-03-28] MEDS ORDERED: VITAMIN C500 MG PO (15:26)
--- NOTE | 2021-03-28 15:47 | NUR ---
Patient arrived to the floor from the ER at approx. 1430. has been at the bedside. Patient very pleasant. came to the floor on 15L O2 via non-rebreather. RT notified that this needed to be changed to OM.
[2021-03-28] MEDS ORDERED: KEYTRUDA25 MG/ML IV (16:09)
[2021-03-28 16:56] VITALS: BP 98/68; PULSE 97; TEMP 98.1
--- NOTE | 2021-03-28 18:18 | NUR ---
Patient is very pleasant and has done well since being on the floor. Patient is now on 10L via OM and tolerating it well. Patient states, "This is the best I've felt in a week". Patient's BS was high and novolog was given. Patient educated on high BS and that steroids can cause this.
[2021-03-28 20:18] VITALS: BP 117/66; PULSE 92; TEMP 98.1
[2021-03-28 21:17] VITALS: BP 135/72; PULSE 91; PULSE 914; TEMP 97.9
[2021-03-28 21:50] LABS: COLLECTION METHOD CLEAN CATCH
[2021-03-28 21:56] LABS: PH 5 (5-8); SQUAMOUS EPITHELIAL 0-2 /hpf; URINE APPEARANCE Hazy; URINE BACTERIA None Seen /hpf; URINE BILIRUBIN Negative (NEGATIVE); URINE BLOOD Negative (NEGATIVE); URINE COLOR Yellow; URINE GLUCOSE 3+ (NEGATIVE); URINE KETONE Negative (NEGATIVE); URINE LEUKOCYTE ESTERASE Negative (NEGATIVE); URINE NITRATE Negative (NEGATIVE); URINE PROTEIN(semi-quant) 1+ (NEGATIVE); URINE RBC 0-2 /hpf; URINE UROBILINOGEN Negative (NEGATIVE); URINE WBC 0-2 /hpf
[2021-03-28 22:28] VITALS: BP 129/74; PULSE 76; TEMP 97.4
--- NOTE | 2021-03-28 23:06 | NUR ---
Patient alert and oriented. Patient currently on oxygen 12L via HF. Patient denies SOB or dyspnea at this time. Patient reports feeling much better with high flow NC. Patient denies any pain or discomfort. All scheduled meds given per JUL. Call light in reach. Will continue to monitor.
[2021-03-29] VITALS (7 sets, daily range): BP systolic 107–142; BP diastolic 53–70; PULSE 73–109; TEMP 97.4–98.5
[2021-03-29 06:58] LABS: BASO % 0.1 % (0.0-2.0); GRAN # 9.1 K/mm3 (1.4-6.5); GRAN % 89.7 % (42.2-75.2); LYMPH # 0.4 K/mm3 (1.2-3.4); MEAN CELL VOLUME 104 fl (80.0-100.0); MEAN CORPUSCULAR HGB CONC 32 g/dl (33.0-37.0); MEAN PLATELET VOLUME 9.7 fl (7.4-10.4); MONO # 0.5 K/mm3 (0.1-0.6); MONO % 4.9 % (1.7-9.3); PLATELET COUNT 1001 K/mm3 (130-400)
[2021-03-29 07:02] LABS: HEMATOCRIT 22.9 % (42.0-52.0); HEMOGLOBIN 7.3 g/dl (13.5-18.0); MEAN CORPUSCULAR HEMOGLOBIN 33 pg (27.0-31.0)
[2021-03-29 07:17] LABS: CREATININE, serum 0.79 mg/dL (0.72-1.25); POTASSIUM 4.1 mmol/L (3.5-4.5)
--- NOTE | 2021-03-29 09:39 | NUR ---
Patient laying in bed upon entering the room. Patient on 12L O2 via HFNC. Patient's work of breathing is extensive, and his sats drop with any amount of exertion. Patient is wanting to take a shower but was encouraged to do a bed bath instead d/t his work of breathing. Patient's is at the bedside. Call light is w/in reach.
[2021-03-29 11:43] LABS: ALBUMIN 2.7 gm/dL (3.4-4.8); BILIRUBIN,TOTAL 0.2 mg/dL (0.2-1.2); TOTAL PROTEIN 6.3 gm/dL (6.2-8.1)
--- NOTE | 2021-03-29 16:15 | NUR ---
Aircraft Riveter met with patient to discuss discharge planning. Patient is currently requiring 12 liters of oxygen. Patient lives in [place] with his , Yolanda (ph#[phone]) [address] Dr. Tolbert for primary care. 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 Patient uses [employer] for oxygen supplies and also has a front wheeled walker and rollator. Patient reports independence with ADLS and plans to return home upon discharge. Patient has Advance Directives in EMR which designate his , Yolanda and daughter, Rossy. Discharge Plan: Home
--- NOTE | 2021-03-29 18:26 | NUR ---
Patient has done well today. He showered with the assistance of the PCT. Patient has only c/o dry eyes which is common for him. All patient needs have been voiced and met by this RN. Call light is w/in reach.
--- NOTE | 2021-03-29 21:13 | NUR ---
Patient sitting up in bed upon enter the room. Patient pleasant, alert and oriented. Patient states feeling much better today. Patient denies any pain, SOB, N/V or diarrhea. Patient currently on oxygen 8L via HF NC. Breathing even and unlabored. All scheduled meds given per JUL. Call light in reach. Will continue to monitor.
[2021-03-30 04:42] VITALS: BP 146/63; PULSE 107; TEMP 98.5
--- NOTE | 2021-03-30 05:23 | NUR ---
Patient currently on 5L oxygen via HF NC. Patient states feeling much better this morning. No acute respiratory distress noted throughout the night. 2 cups of Coffee provided per patient request. Call light in reach.
[2021-03-30 06:53] LABS: MEAN CELL VOLUME 105 fl (80.0-100.0); MEAN CORPUSCULAR HGB CONC 32 g/dl (33.0-37.0); MEAN PLATELET VOLUME 9.6 fl (7.4-10.4); PLATELET COUNT 1184 K/mm3 (130-400); RED BLOOD COUNT 2.21 M/mm3 (4.20-5.60); REDCELL DISTRIBUTION WIDTH-CV 17.1 % (11.5-14.5)
[2021-03-30 06:55] LABS: HEMATOCRIT 23.1 % (42.0-52.0); HEMOGLOBIN 7.4 g/dl (13.5-18.0); MEAN CORPUSCULAR HEMOGLOBIN 33 pg (27.0-31.0)
--- NOTE | 2021-03-30 07:00 | NUR ---
Pt is awake and eating breakfast at this time. Pt states "I feel really good this morning". Pt is ready to go home, and is hoping for discharge orders today.
[2021-03-30 07:09] LABS: CALCIUM 9.4 mg/dL (8.4-10.2); CREATININE, serum 0.72 mg/dL (0.72-1.25); POTASSIUM 4.4 mmol/L (3.5-4.5)
[2021-03-30 07:19] VITALS: BP 139/68; PULSE 102; TEMP 97.7
[2021-03-30 07:36] LABS: BAND 6 % (0-10); LYMPHOCYTE 5 % (20.0-51.0); NEUTROPHILS 76 % (42.0-75.2)
[2021-03-30 07:37] LABS: PLATELET ESTIMATE INCREASED (NORMAL)
--- NOTE | 2021-03-30 10:08 | NUR ---
Initial visit; Patient and his thanked Rivet Bucker for looking in on him and wishing him well.
[2021-03-30] MEDS ORDERED: DOXYCYCLINE 10100 MG PO (10:31)
[2021-03-30] MEDS ORDERED: CEFTIN500 MG PO (10:31)
[2021-03-30] MEDS ORDERED: PREDNISONE10 MG PO (10:35)
[2021-03-30 11:18] VITALS: BP 142/68; PULSE 103; TEMP 97.9
== END 2021-03-30 12:43 | disposition home or self-care (01) | DRG 189 ==
LOC: COL.ER 10:40 → MEDICAL 12:24
PROVIDERS: Family Medicine; Physician Assistant; ADMIT Internal Medicine
PROC: 5A0935A Assistance with Respiratory Ventilation, Less than 24 Consecutive Hours, High Flow/Velocity Cannula (ICD-10-PCS; principal; 2021-03-29)
DX: J96.21 Acute and chronic respiratory failure with hypoxia (principal); C34.90 Malignant neoplasm of unspecified part of unspecified bronchus or lung; J44.9 Chronic obstructive pulmonary disease, unspecified; I10 Essential (primary) hypertension; E78.5 Hyperlipidemia, unspecified; I25.10 Atherosclerotic heart disease of native coronary artery without angina pectoris; Z95.5 Presence of coronary angioplasty implant and graft; N40.0 Benign prostatic hyperplasia without lower urinary tract symptoms; F32.A Depression, unspecified; Z98.1 Arthrodesis status; Z90.3 Acquired absence of stomach [part of]; Z79.82 Long term (current) use of aspirin; Z87.891 Personal history of nicotine dependence; D53.9 Nutritional anemia, unspecified; K22.70 Barrett's esophagus without dysplasia; F41.9 Anxiety disorder, unspecified; D75.839 Thrombocytosis, unspecified; T50.B95A Adverse effect of other viral vaccines, initial encounter
CPT/HCPCS: 99223-AI; 99232-AI; 99239; J1650; J1815; J2930; J7512

== ENCOUNTER 2021-04-21 16:10 | Emergency (ER) | payer OTHER, MEDICARE, BC ==
[~2021-04-21] VITALS: Ht 177.8 cm; Wt 59.5 kg
[~2021-04-21 16:10] MED LIST changes: +DOXYCYCLINE 10100 MG PO; +KEYTRUDA25 MG/ML IV; +VITAMIN C500 MG PO
[2021-04-21 18:08] LABS: BASO # 0.1 K/mm3 (0.0-0.2); BASO % 0.4 % (0.0-2.0); EOS # 0.1 K/mm3 (0.0-0.7); EOS % 0.9 % (0-4.0); GRAN # 10.8 K/mm3 (1.4-6.5); GRAN % 76.9 % (42.2-75.2); LYMPH # 1.8 K/mm3 (1.2-3.4); LYMPH % 12.6 % (20.0-51.0); MEAN CELL VOLUME 102 fl (80.0-100.0); MEAN CORPUSCULAR HGB CONC 31 g/dl (33.0-37.0); MEAN PLATELET VOLUME 9.2 fl (7.4-10.4); MONO # 1.1 K/mm3 (0.1-0.6); MONO % 7.8 % (1.7-9.3); PLATELET COUNT 568 K/mm3 (130-400); RED BLOOD COUNT 2.69 M/mm3 (4.20-5.60); REDCELL DISTRIBUTION WIDTH-CV 16.3 % (11.5-14.5)
[2021-04-21 18:14] LABS: HEMATOCRIT 27.5 % (42.0-52.0); HEMOGLOBIN 8.6 g/dl (13.5-18.0); MEAN CORPUSCULAR HEMOGLOBIN 32 pg (27.0-31.0)
[2021-04-21 18:29] LABS: ALBUMIN 3.2 gm/dL (3.4-4.8); BILIRUBIN,TOTAL 0.2 mg/dL (0.2-1.2); CALCIUM 9.1 mg/dL (8.4-10.2); CREATININE, serum 0.75 mg/dL (0.72-1.25); POTASSIUM 4.3 mmol/L (3.5-4.5); TOTAL PROTEIN 6.4 gm/dL (6.2-8.1)
[2021-04-21] MEDS ORDERED: ZITHROMAX Z PA250 MG PO (20:53)
[2021-04-21] MEDS ORDERED: PREDNISONE20 MG PO (20:53)
[2021-04-21 21:42] VITALS: BP 148/64; PULSE 84; TEMP 97.4
== END 2021-04-21 21:47 | disposition home or self-care (01) ==
LOC: COL.ER 16:10
PROVIDERS: Family Medicine
DX: J44.9 Chronic obstructive pulmonary disease, unspecified (principal); T50.B95A Adverse effect of other viral vaccines, initial encounter
CPT/HCPCS: J2930

== ENCOUNTER 2021-05-08 10:37 | Emergency (ER) | payer OTHER, MEDICARE, BC ==
[~2021-05-08] VITALS: Ht 177.8 cm; Wt 61.4 kg
[~2021-05-08 10:37] MED LIST changes: +ZITHROMAX Z PA250 MG PO
[2021-05-08 11:09] VITALS: TEMP 97.6
[2021-05-08] MEDS ORDERED: AMOXICILLIN 8751 TAB PO (13:53)
[2021-05-08 14:41] VITALS: BP 139/89; PULSE 91
== END 2021-05-08 14:42 | disposition home or self-care (01) ==
LOC: COL.ER 10:37
DX: K11.20 Sialoadenitis, unspecified (principal); J44.9 Chronic obstructive pulmonary disease, unspecified; Z79.899 Other long term (current) drug therapy; Z79.52 Long term (current) use of systemic steroids; Z79.51 Long term (current) use of inhaled steroids
CPT/HCPCS: Q9967

== ENCOUNTER 2021-06-11 06:12 | Day surgery (SDC) | payer MEDICARE, BC ==
[~2021-06-11] VITALS: Ht 175.3 cm; Wt 64.5 kg
[~2021-06-11 06:12] MED LIST changes: +AMOXICILLIN 8751 TAB PO
[2021-06-11 06:49] VITALS: BP 140/70; PULSE 95; TEMP 97.6
[2021-06-11] MEDS ORDERED: NORVASC 5MG5 MG/TAB PO (07:01)
[2021-06-11] MEDS ORDERED: FLOMAX 0.40.4 MG/CAP PO (07:02)
[2021-06-11] MEDS ORDERED: LAMICTAL200 MG PO (07:03)
[2021-06-11] MEDS ORDERED: EFFEXOR-XR150 MG PO (07:03)
[2021-06-11] MEDS ORDERED: ASPIRIN E.C. 8181 MG PO (07:04)
[2021-06-11] MEDS ORDERED: PLAVIX 75MG TAB75 MG PO (07:05)
[2021-06-11] MEDS ORDERED: LIPITOR 40MG TA40 MG PO (07:05)
[2021-06-11] MEDS ORDERED: THEO-24 30300 MG/CAP PO (07:06)
[2021-06-11] MEDS ORDERED: DALIRESP500 MCG PO (07:07)
[2021-06-11] MEDS ORDERED: PROTONIX 40MG T40 MG PO (07:07)
[2021-06-11] MEDS ORDERED: FOLIC ACID 11 MG/TA1 PO (07:08)
[2021-06-11] MEDS ORDERED: AMARYL1 MG PO (07:08)
[2021-06-11] MEDS ORDERED: BREZTRI AEROS10.7 GM IH (07:09)
[2021-06-11] MEDS ORDERED: REMERON 15M15 MG/TA1 PO (07:10)
[2021-06-11] MEDS ORDERED: ATARAX 25MG25 MG/TAB PO (07:11)
[2021-06-11] MEDS ORDERED: EPA FISH OIL1 SGL PO (07:12)
[2021-06-11] MEDS ORDERED: CENTRUM SILVER1 CTB PO (07:12)
[2021-06-11] MEDS ORDERED: VITAMIN C500 MG PO (07:13)
[2021-06-11] MEDS ORDERED: NATURAL IRON65 MG PO (07:13)
[2021-06-11] MEDS ORDERED: VITAMIN B12 781 TAB PO (07:13)
[2021-06-11] MEDS ORDERED: VITAMIN D3400 I1 PO (07:14)
[2021-06-11 07:55] VITALS: BP 114/95; PULSE 90; TEMP 98
[2021-06-11 08:00] VITALS: BP 115/72; PULSE 92
[2021-06-11 08:15] VITALS: BP 127/71; PULSE 86
[2021-06-11 08:30] VITALS: BP 121/65; PULSE 86
[2021-06-11 08:45] VITALS: BP 120/69; PULSE 100
--- NOTE | 2021-06-11 09:00 | NUR ---
0755 Pt returns from endo procedure via cart and RN assist to GI [facility] 1. Pt ambulates from cart to recliner with RN assist. Monitors on and alarms set. Call light within reach. Report received from JOSH Zapata. Pt alert and oriented. Pt requests food and drink. Pt denies any pain or nausea. Pt's present in room. 0820 Pt taking food and drink well. No complications noted. 0850 Discharge instructions given to pt and pt's . All questions answered to their satisfaction. Handed to pt are a thank you card and discharge information. 0900 Pt transferred out of the hospital via wheelchair and JOSH Dodd assist, to private vehicle driven by pt's .
== END 2021-06-11 09:00 | disposition home or self-care (01) ==
LOC: SDCO 06:12
DX: K92.0 Hematemesis (principal); D12.5 Benign neoplasm of sigmoid colon; D12.8 Benign neoplasm of rectum; K44.9 Diaphragmatic hernia without obstruction or gangrene; K64.8 Other hemorrhoids; K57.30 Diverticulosis of large intestine without perforation or abscess without bleeding; R19.5 Other fecal abnormalities; I48.91 Unspecified atrial fibrillation; I10 Essential (primary) hypertension; I25.10 Atherosclerotic heart disease of native coronary artery without angina pectoris; J44.9 Chronic obstructive pulmonary disease, unspecified; K21.9 Gastro-esophageal reflux disease without esophagitis; M54.9 Dorsalgia, unspecified; M19.90 Unspecified osteoarthritis, unspecified site; G89.29 Other chronic pain; E07.9 Disorder of thyroid, unspecified; F41.9 Anxiety disorder, unspecified; F32.A Depression, unspecified; Z79.01 Long term (current) use of anticoagulants; Z79.02 Long term (current) use of antithrombotics/antiplatelets; Z99.89 Dependence on other enabling machines and devices; Z85.118 Personal history of other malignant neoplasm of bronchus and lung; Z98.84 Bariatric surgery status; Z87.11 Personal history of peptic ulcer disease; Z79.82 Long term (current) use of aspirin
CPT/HCPCS: J2704; J7120

== ENCOUNTER 2021-07-02 16:20 | Emergency (ER) | payer MEDICARE, BC ==
[~2021-07-02] VITALS: Ht 175.3 cm; Wt 65.5 kg
[~2021-07-02 16:20] MED LIST changes: +ASPIRIN E.C. 8181 MG PO; +BREZTRI AEROS10.7 GM IH; +CENTRUM SILVER1 CTB PO; +NATURAL IRON65 MG PO; +REMERON 15M15 MG/TA1 PO; +THEO-24 30300 MG/CAP PO; +VITAMIN D3400 I1 PO
[2021-07-02 16:39] VITALS: TEMP 97.5
[2021-07-02 17:07] LABS: MEAN CELL VOLUME 101 fl (80.0-100.0); MEAN CORPUSCULAR HGB CONC 32 g/dl (33.0-37.0); MEAN PLATELET VOLUME 9.4 fl (7.4-10.4); PLATELET COUNT 507 K/mm3 (130-400); RED BLOOD COUNT 3.04 M/mm3 (4.20-5.60); REDCELL DISTRIBUTION WIDTH-CV 15.2 % (11.5-14.5)
[2021-07-02 17:21] LABS: ALBUMIN 3.4 gm/dL (3.4-4.8); BILIRUBIN,TOTAL 0.3 mg/dL (0.2-1.2); CALCIUM 9.8 mg/dL (8.4-10.2); CREATININE, serum 1.13 mg/dL (0.72-1.25); HEMATOCRIT 30.6 % (42.0-52.0); HEMOGLOBIN 9.7 g/dl (13.5-18.0); MEAN CORPUSCULAR HEMOGLOBIN 32 pg (27-31); POTASSIUM 4.5 mmol/L (3.5-4.5); TOTAL PROTEIN 6.7 gm/dL (6.2-8.1)
[2021-07-02 18:00] LABS: BAND 1 % (0-10); LYMPHOCYTE 8 % (20.0-51.0); MYELOCYTE 2 % (0-0); NEUTROPHILS 76 % (42.0-75.2); NUCLEATED RED BLOOD CELL 1 (0-6)
[2021-07-02 18:01] LABS: PLATELET ESTIMATE INCREASED (NORMAL)
[2021-07-02 18:02] LABS: HYPOCHROMIA 1+
[2021-07-02 20:22] VITALS: BP 144/77; PULSE 90
[2021-07-03 12:23] LABS: PATHOLOGY DIFF REVIEW OK
[2021-07-07 11:24] VITALS: O2SAT 90
== END 2021-07-02 20:22 | disposition home or self-care (01) ==
LOC: COL.ER 16:20
PROVIDERS: Family Medicine
DX: J44.1 Chronic obstructive pulmonary disease with (acute) exacerbation (principal); I10 Essential (primary) hypertension; F41.9 Anxiety disorder, unspecified; G47.00 Insomnia, unspecified; Z99.81 Dependence on supplemental oxygen; Z79.899 Other long term (current) drug therapy
CPT/HCPCS: J2930; J7030

== ENCOUNTER 2021-07-07 10:23 | Inpatient (IN) | payer MEDICARE, BC ==
[~2021-07-07] VITALS: Ht 175.3 cm; Wt 60.8 kg
[2021-07-07] VITALS (376 sets, daily range): BP systolic 123–131; BP diastolic 65–67; PULSE 86–89; TEMP 97.7–98.5; O2SAT 77–100
[2021-07-07 12:03] LABS: MEAN CELL VOLUME 103 fl (80.0-100.0); MEAN CORPUSCULAR HGB CONC 31 g/dl (33.0-37.0); MEAN PLATELET VOLUME 9.2 fl (7.4-10.4); PLATELET COUNT 887 K/mm3 (130-400); RED BLOOD COUNT 2.77 M/mm3 (4.20-5.60); REDCELL DISTRIBUTION WIDTH-CV 15.9 % (11.5-14.5)
[2021-07-07 12:17] LABS: ALBUMIN 3.6 gm/dL (3.4-4.8); BILIRUBIN,TOTAL 0.3 mg/dL (0.2-1.2); CALCIUM 9.9 mg/dL (8.4-10.2); CREATININE, serum 0.96 mg/dL (0.72-1.25); POTASSIUM 4.8 mmol/L (3.5-4.5); TOTAL PROTEIN 6.4 gm/dL (6.2-8.1)
[2021-07-07 12:35] LABS: HEMATOCRIT 28.6 % (42.0-52.0); HEMOGLOBIN 8.8 g/dl (13.5-18.0); MEAN CORPUSCULAR HEMOGLOBIN 32 pg (27-31)
[2021-07-07] MEDS ORDERED: VITAMIN D250 MCG PO (12:39)
[2021-07-07] MEDS ORDERED: ZOFRAN8 MG PO (12:42)
[2021-07-07 12:48] LABS: BAND 4 % (0-10); LYMPHOCYTE 7 % (20.0-51.0); NEUTROPHILS 86 % (42.0-75.2); PLATELET ESTIMATE INCREASED (NORMAL)
[2021-07-07 12:49] LABS: ANISOCYTOSIS 1+
[2021-07-07] MEDS ORDERED: ALBUTEROL S0.4 MG/ML (19:24)
[2021-07-08] VITALS (547 sets, daily range): BP systolic 114–155; BP diastolic 51–85; PULSE 81–102; TEMP 97.7–98.7; O2SAT 70–100
[2021-07-08 05:29] LABS: MEAN CELL VOLUME 101 fl (80.0-100.0); MEAN CORPUSCULAR HGB CONC 31 g/dl (33.0-37.0); MEAN PLATELET VOLUME 9.3 fl (7.4-10.4); PLATELET COUNT 938 K/mm3 (130-400); RED BLOOD COUNT 2.92 M/mm3 (4.20-5.60)
[2021-07-08 05:44] LABS: HEMATOCRIT 29.6 % (42.0-52.0); HEMOGLOBIN 9.1 g/dl (13.5-18.0); MEAN CORPUSCULAR HEMOGLOBIN 31 pg (27-31)
[2021-07-08 05:48] LABS: ALBUMIN 3.2 gm/dL (3.4-4.8); CALCIUM 9.6 mg/dL (8.4-10.2); CREATININE, serum 0.83 mg/dL (0.72-1.25); MAGNESIUM 2.3 mg/dL (1.6-2.6); PHOSPHOROUS 5.6 mg/dL (2.3-4.7); POTASSIUM 4.8 mmol/L (3.5-4.5)
[2021-07-08 05:53] LABS: BAND 2 % (0-10); LYMPHOCYTE 6 % (20.0-51.0); NEUTROPHILS 90 % (42.0-75.2)
[2021-07-08 05:54] LABS: ANISOCYTOSIS 3+; HYPOCHROMIA 1+; PLATELET ESTIMATE INCREASED (NORMAL)
--- NOTE | 2021-07-08 08:46 | NUR ---
The PT requested a summary of his chest CT. I provided the PT with a print out, wih highlighted areas of importance. This nurse stated " some of this may be hard to understand because its medical jargen, but I highlighted the summary for you". The PT then stated " Do you think im stupid or something" then threw the paper at me and pushed away my hands.
--- NOTE | 2021-07-08 10:19 | NUR ---
Initial visit attempt; Patient declined spiritual care, Media Executive left card.
--- NOTE | 2021-07-08 16:14 | NUR ---
Asphalt Tile Floor Layer met with patient to discuss discharge planning. Patient lives in [place] with his Yolanda King" (ph#[phone]) and sees Dr. Tolbert for primary care. Patient obtains medications from the [facility] in [place] ([facility]). Patient has two canes and two walkers at home and reports independence with ADLS. Patient states his does the housekeeping and cooking. Patient advised he has oxygen set up at home from [employer]. Patient advised that his , Joan is his DPOA-HC and he believes the alternate agent is his oldest daughter, Rossy. Patient has chemotherapy every [address] Austin, but reports that he does not get radiation. Patient plans to return home at time of discharge. SW contacted patient's , Joan but she was in a dental appointment and could not talk at that time. Discharge Plan: Home
--- NOTE | 2021-07-08 19:35 | NUR ---
Pt tried to sit up for tx but got very short of breath. Bed reclined and pt finished tx with no further issues.
[2021-07-09] VITALS (739 sets, daily range): BP systolic 125–168; BP diastolic 55–98; PULSE 90–111; TEMP 97.7–98.7; O2SAT 79–100
[2021-07-09 05:23] LABS: MEAN CELL VOLUME 101 fl (80.0-100.0); MEAN CORPUSCULAR HGB CONC 31 g/dl (33.0-37.0); MEAN PLATELET VOLUME 9.3 fl (7.4-10.4); PLATELET COUNT 902 K/mm3 (130-400); RED BLOOD COUNT 2.66 M/mm3 (4.20-5.60); REDCELL DISTRIBUTION WIDTH-CV 16.3 % (11.5-14.5)
[2021-07-09 05:27] LABS: HEMATOCRIT 26.8 % (42.0-52.0); HEMOGLOBIN 8.4 g/dl (13.5-18.0); MEAN CORPUSCULAR HEMOGLOBIN 32 pg (27-31)
[2021-07-09 05:59] LABS: ALBUMIN 3.3 gm/dL (3.4-4.8); C-REACTIVE PROTEIN 1.72 mg/dL (0.00-0.50); CALCIUM 9.4 mg/dL (8.4-10.2); CREATININE, serum 0.82 mg/dL (0.72-1.25); MAGNESIUM 2.2 mg/dL (1.6-2.6); PHOSPHOROUS 4.9 mg/dL (2.3-4.7); POTASSIUM 4.9 mmol/L (3.5-4.5)
[2021-07-09 06:10] LABS: ANISOCYTOSIS 1+; BAND 6 % (0-10); HYPOCHROMIA 3+; LYMPHOCYTE 7 % (20.0-51.0); NEUTROPHILS 85 % (42.0-75.2); PLATELET ESTIMATE INCREASED (NORMAL)
--- NOTE | 2021-07-09 14:00 | NUR ---
Patient to room 316 from the ICU by wheelchair. at the bedside. Nurse oriented the patient to location, room and call light. Patient A&Ox4. RT placed patient on 10L HF NC O2, no reported SOB. Patient has own pulse ox at the bedside. Denies pain and discomfort. IV CDI. Patient instructed to call nursing staff for assistance with ambulation. No further needs expressed. Call light within reach
--- NOTE | 2021-07-09 17:39 | NUR ---
Patient resting in bed, A&Ox4. VSS 10 L NC O2, no reported SOB. IV CDI. Patient independent in bed and with feeds. No further needs expressed. Call light within reach.
--- NOTE | 2021-07-09 20:00 | NUR ---
Bedside shift report received, assumed care for night baker. Assessment complete. A&Ox4. Denies pain/nausea. Short of breath with activity. O2@10L/HFNC with good saturations. NC WNL. Tele reporting SR. VS remain stable. L FA INT flushes well. Plan of care discussed for this shift to include meds/ calling for questions/concerns. Verbalizes understanding/denies needs. Call light in reach. Will monitor.
--- NOTE | 2021-07-10 02:19 | NUR ---
Resting eyes closed. No s/s of pain or discomfort noted. Will continue to monitor.
[2021-07-10 03:48] VITALS: BP 142/68; PULSE 92; TEMP 98.2
--- NOTE | 2021-07-10 05:19 | NUR ---
Rested well this shift. Denied pain/nausea. Short of breath with activity. VS remained stable. O2@10L/HFNC with adequate saturations. Tele reports SR> Left FA INT flushes well. Denies current needs. Call light in reach. Will monitor.
[2021-07-10 06:33] LABS: MEAN CELL VOLUME 104 fl (80.0-100.0); MEAN CORPUSCULAR HGB CONC 31 g/dl (33.0-37.0); MEAN PLATELET VOLUME 9.6 fl (7.4-10.4); PLATELET COUNT 961 K/mm3 (130-400); RED BLOOD COUNT 2.74 M/mm3 (4.20-5.60); REDCELL DISTRIBUTION WIDTH-CV 16.6 % (11.5-14.5)
[2021-07-10 06:42] LABS: HEMATOCRIT 28.4 % (42.0-52.0); HEMOGLOBIN 8.8 g/dl (13.5-18.0); MEAN CORPUSCULAR HEMOGLOBIN 32 pg (27-31)
[2021-07-10 07:03] LABS: ALBUMIN 3.5 gm/dL (3.4-4.8); CALCIUM 9.4 mg/dL (8.4-10.2); CREATININE, serum 0.82 mg/dL (0.72-1.25); MAGNESIUM 2.3 mg/dL (1.6-2.6); PHOSPHOROUS 4.1 mg/dL (2.3-4.7)
[2021-07-10 07:07] LABS: LYMPHOCYTE 12 % (20.0-51.0)
[2021-07-10 07:08] LABS: ANISOCYTOSIS 1+; PLATELET ESTIMATE INCREASED (NORMAL)
[2021-07-10 07:09] LABS: HYPOCHROMIA 2+
[2021-07-10 07:10] LABS: BAND 2 % (0-10); NEUTROPHILS 75 % (42.0-75.2)
[2021-07-10 07:37] VITALS: BP 134/60; PULSE 107; TEMP 97.8
[2021-07-10 11:12] VITALS: BP 118/71; PULSE 102; TEMP 98.2
[2021-07-10 15:55] VITALS: BP 121/53; PULSE 92; TEMP 97.6
--- NOTE | 2021-07-10 19:00 | NUR ---
Bedside report received, assumed care for [facility] shift lead. Assessment complete. A&Ox4. Denies pain/nausea. Short of breath with activity O2@15L/HFNC. Tele reporting SR. KAYLENE WNL. Left forearm INT flushes well with no s/s of infiltration. Plan of care discussed for this shift to include meds/calling for questions/concerns. Verbalizes understanding. Call light in reach. Will monitor.
[2021-07-10 20:20] VITALS: BP 140/57; PULSE 104; TEMP 97.6
[2021-07-11] VITALS (8 sets, daily range): BP systolic 129–167; BP diastolic 58–85; PULSE 63–115; TEMP 97.7–99
--- NOTE | 2021-07-11 00:21 | NUR ---
TX DONE EARLY PER PT REQUEST SINCE HE WAS AWAKE AT THIS TIME.
--- NOTE | 2021-07-11 01:10 | NUR ---
Resting in bed eyes closed. No s/s of pain noted. Will monitor.
--- NOTE | 2021-07-11 05:02 | NUR ---
Rested well this shift. O2 continues at 10L/HFNC with adequate saturations. Tele reports SR. NC WNL. Left forearm INT flushes well with no s/s of infiltration noted. Denies current questions/concerns. Call light in reach. Will monitor.
[2021-07-11 07:27] LABS: ALBUMIN 3.4 gm/dL (3.4-4.8); CALCIUM 9.3 mg/dL (8.4-10.2); CREATININE, serum 0.76 mg/dL (0.72-1.25); MAGNESIUM 2.2 mg/dL (1.6-2.6); PHOSPHOROUS 3.6 mg/dL (2.3-4.7); POTASSIUM 4.9 mmol/L (3.5-4.5)
[2021-07-11 07:34] LABS: MEAN CELL VOLUME 102 fl (80.0-100.0); MEAN CORPUSCULAR HGB CONC 31 g/dl (33.0-37.0); MEAN PLATELET VOLUME 9.7 fl (7.4-10.4); RED BLOOD COUNT 2.63 M/mm3 (4.20-5.60); REDCELL DISTRIBUTION WIDTH-CV 16.5 % (11.5-14.5)
[2021-07-11 07:36] LABS: HEMATOCRIT 26.9 % (42.0-52.0); HEMOGLOBIN 8.4 g/dl (13.5-18.0); MEAN CORPUSCULAR HEMOGLOBIN 32 pg (27-31)
[2021-07-11 07:37] LABS: PLATELET COUNT 861 K/mm3 (130-400)
[2021-07-11 08:43] LABS: BAND 1 % (0-10); LYMPHOCYTE 5 % (20.0-51.0); NEUTROPHILS 86 % (42.0-75.2)
[2021-07-11 08:44] LABS: ANISOCYTOSIS 1+; HYPOCHROMIA 2+; PLATELET ESTIMATE INCREASED (NORMAL)
--- NOTE | 2021-07-11 18:47 | NUR ---
Patient has had an ok day. Scheduled medications given. Shift assessment performed. Patient currently requiring 10L of high flow oxygen. Denies any pain, discomfort, or further needs at this time. Call light in reach. Fall peracautions in place. VSS. Patient A&O.
--- NOTE | 2021-07-11 22:16 | NUR ---
Patient assessed around 2044. Alert and oriented, and able to make needs known. Denies pain and discomfort. On oxygen at 10 L/min via NC. Continues to have SOB and dyspnea with exertion. LS CTA in upper lobes, diminished in lower. Voices no questions, needs, or concerns at this time. In bed with call light within reach. Bed alarm on.
[2021-07-12 03:57] VITALS: BP 133/68; PULSE 81; TEMP 97.9
--- NOTE | 2021-07-12 06:12 | NUR ---
Patient has been resting in bed. Has been pleasant and cooperative with cares. Continues on IV ABX per orders. Voices no questions, needs, or concerns at this time. In bed with call light within reach.
[2021-07-12 06:25] LABS: MEAN CELL VOLUME 102 fl (80.0-100.0); MEAN CORPUSCULAR HGB CONC 31 g/dl (33.0-37.0); MEAN PLATELET VOLUME 9.8 fl (7.4-10.4); PLATELET COUNT 835 K/mm3 (130-400); RED BLOOD COUNT 2.82 M/mm3 (4.20-5.60); REDCELL DISTRIBUTION WIDTH-CV 16.4 % (11.5-14.5)
[2021-07-12 06:32] LABS: HEMATOCRIT 28.8 % (42.0-52.0); HEMOGLOBIN 8.8 g/dl (13.5-18.0); MEAN CORPUSCULAR HEMOGLOBIN 31 pg (27-31)
[2021-07-12 06:43] LABS: ALBUMIN 3.6 gm/dL (3.4-4.8); CALCIUM 9.4 mg/dL (8.4-10.2); CREATININE, serum 0.76 mg/dL (0.72-1.25); MAGNESIUM 2.4 mg/dL (1.6-2.6); PHOSPHOROUS 4.1 mg/dL (2.3-4.7); POTASSIUM 5.1 mmol/L (3.5-4.5)
[2021-07-12 07:29] LABS: BAND 3 % (0-10); LYMPHOCYTE 10 % (20.0-51.0); METAMYELOCYTE 2 % (0-0); NEUTROPHILS 76 % (42.0-75.2); PLATELET ESTIMATE INCREASED (NORMAL)
[2021-07-12 07:30] LABS: ANISOCYTOSIS 1+
[2021-07-12 07:48] VITALS: BP 138/81; PULSE 100; TEMP 98
--- NOTE | 2021-07-12 10:43 | NUR ---
PT SITTING UP IN BED. MORNING MEDICATIONS GIVEN. SHIFT ASSESSMENT GIVEN. PT CURRENTLY ON 11L VIA NV. PLANNING TO DISCHARGE AT 1730 THIS AFTERNOON. DENIES ANY NEEDS AT THIS TIME. CONTINUING TO MONITOR.
[2021-07-12 11:01] VITALS: BP 140/71; PULSE 99; TEMP 98.2
--- NOTE | 2021-07-12 11:08 | NUR ---
The clinical is recommending LTACH and would like a referral sent to [facility]. LORETTA contacted and faxed a referral to Ceasar at [facility]. Ceasar reports that the patient does qualify and they are able to accept the patient today and request a 1730 customer support manager time from EMS. LORETTA notified the clinical team. The clinical team rounded on the patient and the patient is agreeable to going to [facility]. LORETTA met with the patient and his , Joan, and reviewed the above. The patient and Joan confirm that they are agreeable with going to [facility] today. LORETTA presented the EMS Consent Form. The patient signed the form. The patient is to discharge today, 07/12, to [facility] in [place]. Transportation was scheduled at 1730, via [facility]. LORETTA informed the patient, his , and RN of the transport time. No additional needs at this time.
--- NOTE | 2021-07-12 13:07 | NUR ---
CALLED REPORT TO CHARGE NURSE AT [facility]. ALL QUESTIONS ANSWERED.
[2021-07-12 16:25] VITALS: BP 132/67; PULSE 94; TEMP 98.2
--- NOTE | 2021-07-12 17:47 | NUR ---
DISCHARGE INSTRUCTIONS GIVEN TO EMS.
== END 2021-07-12 17:49 | DRG 871 ==
LOC: ICU 10:23 → MEDICAL 07-09 13:00
PROVIDERS: ADMIT Internal Medicine
PROC: 5A0945A Assistance with Respiratory Ventilation, 24-96 Consecutive Hours, High Flow/Velocity Cannula (ICD-10-PCS; principal; 2021-07-09)
DX: A41.9 Sepsis, unspecified organism (principal); J96.21 Acute and chronic respiratory failure with hypoxia; J18.9 Pneumonia, unspecified organism; I50.31 Acute diastolic (congestive) heart failure; C34.31 Malignant neoplasm of lower lobe, right bronchus or lung; D84.9 Immunodeficiency, unspecified; J44.0 Chronic obstructive pulmonary disease with (acute) lower respiratory infection; J44.1 Chronic obstructive pulmonary disease with (acute) exacerbation; I11.0 Hypertensive heart disease with heart failure; F31.9 Bipolar disorder, unspecified; I25.10 Atherosclerotic heart disease of native coronary artery without angina pectoris; E78.5 Hyperlipidemia, unspecified; D64.9 Anemia, unspecified; K22.70 Barrett's esophagus without dysplasia; N40.0 Benign prostatic hyperplasia without lower urinary tract symptoms; E11.9 Type 2 diabetes mellitus without complications; E87.5 Hyperkalemia; E83.39 Other disorders of phosphorus metabolism; D75.839 Thrombocytosis, unspecified; Z87.891 Personal history of nicotine dependence; Z79.82 Long term (current) use of aspirin; Z95.5 Presence of coronary angioplasty implant and graft; Z23 Encounter for immunization
CPT/HCPCS: 99223-AI; 99231-AI; 99232-AI; 99233-AI; 99239; A9284; J0696; J1644; J2920; J7512; Q9967